=== PATIENT | male | born 1945 | race Caucasian/White ===

== ENCOUNTER 2016-10-09 14:12 | Emergency (ER) | payer MEDICARE ==
[~2016-10-09] VITALS: Ht 177.8 cm; Wt 94.0 kg
[~2016-10-09 14:12] MED LIST: ASPI81 PO; EZET10 PO; FLEX10TA PO; METO50CR PO; NEUR300C PO; OXYC-68 PO; SERT25TA83 PO; TERA10CA3 PO
[2016-10-09 14:19] VITALS: BP 170/89; PULSE 74; RESP 16; TEMP 98.2; O2SAT 93
[2016-10-09] MEDS ORDERED: ZETI10TA5 PO (14:50)
[2016-10-09] MEDS ORDERED: BUPR100T4 PO (14:50)
[2016-10-09] MEDS ORDERED: TRAZ50TA12 PO (14:50)
[2016-10-09] MEDS ORDERED: ASPI1TAB69 PO (14:50)
[2016-10-09] MEDS ORDERED: METO50TA PO (14:50)
[2016-10-09] MEDS ORDERED: PRAV10TA PO (14:50)
[2016-10-09] MEDS ORDERED: TEST-25 SQ (14:50)
[2016-10-09] MEDS ORDERED: [UNRECOGNIZED DRUG - CODE] SQ (14:50)
[2016-10-09] MEDS ORDERED: TERA5CAP3 PO (14:50)
--- NOTE | 2016-10-09 15:24 | RADHPO ---
EXAM DATE/TIME: 10/09/2016 15:08 [facility] COMPARISON: No previous studies available for comparison. INDICATIONS : Right shoulder pain from fall. MEDICAL HISTORY : None. SURGICAL HISTORY : None. ENCOUNTER: Initial ACUITY: 1 day PAIN SCORE: 6/10 LOCATION: superior side of right shoulder. FINDINGS: Multiple view examination of the right shoulder demonstrates no evidence of fracture or dislocation. The glenohumeral and acromioclavicular joints are maintained. There is normal range of motion betwe en internal and external rotation. Bony mineralization is normal. CONCLUSION: 1. No acute fracture. Pablo Aiken MD on October 09, 2016 at 15:23 Board Certified Radiologist. This report was verified electronically.
--- NOTE | 2016-10-09 15:38 | RADHPO ---
EXAM DATE/TIME: 10/09/2016 15:16 [facility] COMPARISON: No previous studies available for comparison. INDICATIONS : Fall, cephalgia and right supraorbital laceration. RADIATION DOSE: 60.93 CTDIvol (mGy) MEDICAL HISTORY : Hypertension. Chronic obstructive pulmonary disease. SURGICAL HISTORY : None. ENCOUNTER: Initial ACUITY: 1 day PAIN SCALE: 5/10 LOCATION: cranial TECHNIQUE: Multiple contiguous axial images were obtained of the head. Using automated exposure control and adj ustment of the mA and/or kV according to patient size, radiation dose was kept as low as reasonably a chievable to obtain optimal diagnostic quality images. FINDINGS: CEREBRUM: The ventricles are normal for age. No evidence of midline shift, mass lesion, hemorrhage or acute in farction. No extra-axial fluid collections are seen. POSTERIOR FOSSA: The cerebellum and brainstem are intact. The 4th ventricle is midline. The cerebellopontine angle i s unremarkable. EXTRACRANIAL: The visualized portion of the orbits is intact. SKULL: The calvaria is intact. No evidence of skull fracture. CONCLUSION: No acute intracranial disease. Pablo Aiken MD on October 09, 2016 at 15:36 Board Certified Radiologist. This report was verified electronically.
--- NOTE | 2016-10-09 15:42 | RADHPO ---
EXAM DATE/TIME: 10/09/2016 15:16 [facility] COMPARISON: No previous studies available for comparison. INDICATIONS : Fall, right neck and shoulder pain. RADIATION DOSE: 26.54 CTDIvol (mGy) MEDICAL HISTORY : Hypertension. Chronic obstructive pulmonary disease. SURGICAL HISTORY : None. ENCOUNTER: Initial ACUITY: 1 day PAIN SCALE: 5/10 LOCATION: Right neck TECHNIQUE: Volumetric scanning of the cervical spine was performed. Multiplanar reconstructions in the sagittal, coronal and oblique axial planes were performed. Using automated exposure control and adjustment o f the mA and/or kV according to patient size, radiation dose was kept as low as reasonably achievable to obtain optimal diagnostic quality images. FINDINGS: VERTEBRAE: Normal vertebral body height. Multilevel degenerative changes greatest at C5-6 and C6-7 levels. Multi level degenerative changes of the facets. No canal stenosis. Small central protrusion at C3-4, C4-5 l evels. ALIGNMENT: No evidence of subluxation. Degenerative retrolisthesis C5 on C6. CONCLUSION: 1. Degenerative retrolisthesis C5 on C6. 2. No fracture. Pablo Aiken MD on October 09, 2016 at 15:38 Board Certified Radiologist. This report was verified electronically.
[2016-10-09] MEDS ORDERED: TRAM50TA PO ×2 (16:10→16:11)
--- NOTE | 2016-10-09 16:10 | PD ---
HPI Chief Complaint: Laceration/Skin Injury Time Seen by Provider: 14:50 Travel History International Travel<30 days: No Contact w/Intl Traveler<30days: No Traveled to known affect area: No History of Present Illness HPI 71-year-old male persist emergency department status post fall. Patient slipped and local establishment falling backwards hitting his anterior forehead on a door jam. Patient is unsure of loss of consciousness. He felt dazed and somewhat confused for about a minute afterwards. Patient also is complaining of right shoulder pain and some hip discomfort from the fall. Patient has some neck discomfort as well but is ambulatory. Patient denies dental injury or other complaints of shortness of breath, chest pain, abdominal pain, or other symptoms. Patient is unsure of his last tetanus shot. Patient has no known drug allergies. PFSH Past Medical History Hx Anticoagulant Therapy: Yes (ASPIRIN) Arthritis: Yes Heart Rhythm Problems: No Cancer: Yes (SKIN CANCER BACK OF NECK) Cardiovascular Problems: Yes High Cholesterol: Yes Chemotherapy: No Chest Pain: No Congestive Heart Failure: No COPD: Yes Diabetes: No Diminished Hearing: No Endocrine: No Gastrointestinal Disorders: No Genitourinary: No Hypertension: Yes Immune Disorder: No Implanted Vascular Access Dvce: Yes Musculoskeletal: Yes (hx of staph infection in L5) Neurologic: No Psychiatric: No Reproductive: No Respiratory: Yes Radiation Therapy: No Influenza Vaccination: Yes Past Surgical History Abdominal Surgery: No Cardiac Surgery: No Ear Surgery: No Endocrine Surgery: No Eye Surgery: No Genitourinary Surgery: No Gynecologic Surgery: No Neurologic Surgery: No Oral Surgery: No Thoracic Surgery: No Other Surgery: Yes (IMPLANTED PORT) Social History Alcohol Use: Yes (RARE) Tobacco Use: No Substance Use: No Allergies-Medications (Allergen,Severity, Reaction): Coded Allergies: No Known Allergies (Verified , 10/09/16) Reported Meds & Prescriptions Reported Meds & Active Scripts Active Tramadol (Tramadol HCl) 50 Mg Tab 50 Mg PO Q6H PRN Tramadol (Tramadol HCl) 50 Mg Tab 50 Mg PO Q6H PRN Reported [Testosterone] 2 SQ MONTHLY Zemaira Inj (Alpha1-Proteinase Inhibitor (Human) Inj) 1,000 Mg/20 Ml Kit 200 Mg SQ WEEKLY Aspirin 81 Mg Tabdr 81 Mg PO DAILY Bupropion HCl 100 Mg Tab 150 Mg PO HS Pravastatin 10 Mg Tab 10 Mg PO DAILY Trazodone (Trazodone HCl) 50 Mg Tab 75 Mg PO HS Zetia (Ezetimibe) 10 Mg Tab 10 Mg PO DAILY Metoprolol Tartrate 50 Mg Tab 50 Mg PO DAILY Terazosin (Terazosin HCl) 5 Mg Cap 5 Mg PO HS Review of Systems Except as stated in HPI: all other systems reviewed are Neg General / Constitutional: No: Fever Eyes: No: Visual changes HENT: No: Headaches Cardiovascular: No: Chest Pain or Discomfort Respiratory: No: Shortness of Breath Gastrointestinal: No: Abdominal Pain Genitourinary: No: Dysuria Musculoskeletal: No: Pain Skin: No Rash Neurologic: No: Weakness Psychiatric: No: Depression Endocrine: No: Polydipsia Hematologic/Lymphatic: No: Easy Bruising Physical Exam Narrative GENERAL: Patient appears in mild distress. SKIN: Warm and dry. Patient has 2 superficial lacerations to the right medial brow which is already stopped bleeding. HEAD: Atraumatic. Normocephalic. Mild tenderness over this anterior forehead area. EYES: Pupils equal and round. No scleral icterus. No injection or drainage. ENT: No nasal bleeding or discharge. Mucous membranes pink and moist. No dental injury. Airway is patent. NECK: Trachea midline. No JVD. Mild tenderness, seemingly soft tissue without bony tenderness or step-off. Range of motion is full. CARDIOVASCULAR: Regular rate and rhythm. No murmurs gallops or rubs. RESPIRATORY: No accessory muscle use. Clear to auscultation. Breath sounds equal bilaterally. No thoracic tenderness with palpation. GASTROINTESTINAL: Abdomen soft, non-tender, nondistended. Hepatic and splenic margins not palpable. MUSCULOSKELETAL: Extremities without clubbing, cyanosis, or edema. No obvious deformities. Patient has some mild discomfort in the anterior lateral shoulder palpation without obvious deformity or limited range of motion. Patient has mild tenderness over the right lateral hip with superficial bruising noted. Patient is ambulatory without difficulty. NEUROLOGICAL: Awake and alert. No obvious cranial nerve deficits. Motor grossly within normal limits. Five out of 5 muscle strength in the arms and legs. Normal speech. PSYCHIATRIC: Appropriate mood and affect; insight and judgment normal. Data Data Last Documented VS Vital Signs Date Time Temp Pulse Resp B/P Pulse Ox O2 Delivery O2 Flow Rate FiO2 10/09/16 14:19 98.2 74 16 170/[address] Brain W/O Iv Contrast(Rout) (10/09/16 15:02) Ct Cerv Spine W/O Contrast (10/09/16 15:02) Shoulder, Complete (>2vws) (10/09/16 15:02) Tetanus/Diphtheria Tox Adult (Tetanus/Di (10/09/16 16:15) MDM Medical Decision Making Medical Screen Exam Complete: Yes Emergency Medical Condition: Yes Differential Diagnosis Fall. Head contusion. Superficial laceration. Neck pain. Right shoulder pain. Fracture. Hip contusion. Narrative Course Patient is medically stable at time of exam. CT of the head and neck is ordered. X-rays of the right shoulder ordered. CT the head and neck are negative per radiologist for acute findings. X-rays of the right shoulder negative per radiologist. Patient is given a tetanus booster IM. Dermabond was placed over the facial abrasions/lacerations. Patient is given tramadol 50 mg one every 6 hours when necessary pain #20. Patient can take Tylenol as well as needed. Recommend ice to the contused areas and follow with his primary care physician as needed. Patient should return the emergency Department with worsening symptoms as needed. Procedures Procedure Narrative LACERATION LOCATION: Right medial brow LENGTH: 1 cm NUMBER OF STITCHES/SHARON: Dermabond REPAIR: The area of the laceration was prepped with Betadine and sterilely draped. The wound was copiously irrigated and explored without evidence of foreign body, tendon injury or neurovascular injury. The wound was closed using Dermabond. This was a single layer repair. The patient was advised to keep the area clean and dry. Patient tolerated the procedure well. Diagnosis Primary Impression: Fall Qualified Code: W19.XXXA - Fall, initial encounter Additional Impressions: Contusion of face Qualified Code: S00.83XA - Contusion of face, initial encounter Laceration of face without complication Qualified Code: S01.81XA - Laceration of face without complication, initial encounter Contusion of right shoulder Qualified Code: S40.011A - Contusion of right shoulder, initial encounter Contusion of right hip Qualified Code: S70.01XA - Contusion of right hip, initial encounter Referrals: Primary Care Physician Patient Instructions: Facial Contusion (ED), Facial Laceration (ED), General Instructions, Tetanus (DC) Additional Instructions: CT the head and neck are negative per radiologist for acute findings. X-rays of the right shoulder negative per radiologist. Patient is given a tetanus booster IM. Dermabond was placed over the facial abrasions/lacerations. Patient is given tramadol 50 mg one every 6 hours when necessary pain #20. Patient can take Tylenol as well as needed. Recommend ice to the contused areas and follow with his primary care physician as needed. Patient should return the emergency Department with worsening symptoms as needed. Med/Other Pt SpecificInfo: Prescription(s) given Scripts Tramadol 50 Mg Tab50 Mg PO Q6H PRN (PAIN) #20 TAB Prov:Chavez Richardson MD 10/09/16 Tramadol 50 Mg Tab50 Mg PO Q6H PRN (PAIN) #20 TAB Prov:Kelsy Holder MD 10/09/16 Disposition: 01 DISCHARGE HOME Condition: Stable Matthew Guevara Oct 09, 2016 16:10
[2016-10-09] MEDS ORDERED: TETANUS/DIPHTHERIA TOXOID ADULT 0.5 ML VIAL IM ONE (16:15)
== END 2016-10-09 16:30 | disposition home or self-care (01) ==
LOC: PHED 14:12 → PHEFT 16:30
DX: S01.81XA Laceration without foreign body of other part of head, initial encounter (principal); S70.01XA Contusion of right hip, initial encounter; S40.011A Contusion of right shoulder, initial encounter; W01.0XXA Fall on same level from slipping, tripping and stumbling without subsequent striking against object, initial encounter; Z23 Encounter for immunization
CPT/HCPCS: 12011; 70450; 72125; 73030; 90471; 90714

== ENCOUNTER → 2016-12-17 | Outpatient (CLI) | payer MEDICARE ==
[~2016-12-17] MED LIST changes: +ASPI1TAB69 PO; -ASPI81 PO; +BUPR100T4 PO; -EZET10 PO; -FLEX10TA PO; -METO50CR PO; +METO50TA PO; -NEUR300C PO; -OXYC-68 PO; +PRAV10TA PO; -SERT25TA83 PO; -TERA10CA3 PO; +TERA5CAP3 PO; +TEST-25 SQ; +TRAM50TA PO; +TRAZ50TA12 PO; +ZETI10TA5 PO; +[UNRECOGNIZED DRUG - CODE] SQ
[2016-12-17 08:47] LABS: ALKALINE PHOSPHATASE 67 U/L (45-117); TOTAL BILIRUBIN ADULT 0.5 MG/DL (0.2-1.0)
[2016-12-17 09:15] LABS: ALT (GPT) 30 U/L (12-78); ANION GAP 5 MEQ/L (5-15); AST (GOT) 32 U/L (15-37); BICARBONATE 29.2 MEQ/L (21.0-32.0); BLOOD UREA NITROGEN 27 MG/DL (7-18); CHLORIDE 105 MEQ/L (98-107); GLOMERULAR FILTRATION RATE 59 ML/MIN (>89); GLUCOSE,FASTING 103 MG/DL (74-99); SODIUM (NA) 139 MEQ/L (136-145)
[2016-12-17 09:16] LABS: POTASSIUM 4.6 MEQ/L (3.5-5.1)
== END ==
LOC: HRSP 07:29
DX: J44.9 Chronic obstructive pulmonary disease, unspecified (principal); R05 Cough; R06.00 Dyspnea, unspecified
CPT/HCPCS: 36415; 80053

== ENCOUNTER 2017-03-28 13:46 | Day surgery (SDC) | payer MEDICARE ==
[2017-03-28 14:07] VITALS: BP 158/82; PULSE 82; RESP 18; TEMP 98.2; O2SAT 98
[2017-03-28] MEDS ORDERED: ASPI81CH37 CHEW (14:10)
[2017-03-28] MEDS ORDERED: TEST1KIT IM (14:11)
[2017-03-28 15:21] VITALS: BP 132/74; PULSE 64; RESP 17; TEMP 98.3; O2SAT 97
--- NOTE | 2017-03-28 15:55 | PD.RAD ---
Post Procedure Progress Note Pre Procedure Diagnosis: (1) Problem with vascular access Post Procedure Diagnosis: (1) Problem with vascular access Procedure Date: Mar 28, 2017 Supervising Radiologist: Mode Nova JR Proceduralist/Assist: RT Mckenzie(R)(CV) Anesthesia: Other Plan of Activity Patient to Unit: ROPU Patient Condition: Good Additional Comments: Left port accessed without difficulty. Good blood return obtained. Injection shows patent port. No fibrin sheath. Tip in good position. Flushed with heparin. See PACS Report for procedural detail/treatment Jr. Avtar,Mode Prince MD Mar 28, 2017 15:55
--- NOTE | 2017-03-28 16:19 | RADRPT ---
EXAM DATE/TIME: 03/28/2017 14:56 COMPARISON: No previous studies available for comparison. INDICATIONS : Patient has port for Alpha 1. receives infusions. No blood draw MEDICAL HISTORY : 1. HTN 2. COPD 3. Staph infection L5 4. skin ca SURGICAL HISTORY : 1. Lt port ENCOUNTER: Initial ACUITY: 1 week PAIN SCORE: 0/10 FLUORO TIME: 0.3 minutes IMAGE SERIES: 2 ACCESS SITE: Left port CONTRAST: 1.) 10 cc Omnipaque (iohexol) 350 FINDINGS: The patient's left-sided Port-A-Cath was accessed. A good brisk blood return noted. Injection of cont rast was performed under fluoroscopic control. No fibrin sheath. No extravasation of contrast to sugg est a fracture in the catheter. The tip of the catheter is appropriate lead positioned at the cavoatr ial junction. CONCLUSION: Port-A-Cath in good position and functioning well. Mode Nova Jr., MD on March 28, 2017 at 16:16 Board Certified Radiologist. This report was verified electronically.
== END 2017-03-28 15:20 | disposition home or self-care (01) ==
LOC: HROP 13:46 → HRIP 13:47 → HROP 15:20
PROVIDERS: ATTEND Surgery
DX: T82.898A Other specified complication of vascular prosthetic devices, implants and grafts, initial encounter (principal)
CPT/HCPCS: 36598; J1642

== ENCOUNTER → 2017-04-19 | Outpatient (CLI) | payer MEDICARE ==
[~2017-04-19] MED LIST changes: -ASPI1TAB69 PO; +ASPI81CH37 CHEW; -TEST-25 SQ; +TEST1KIT IM
--- NOTE | 2017-04-26 11:55 | RSPPFT ---
DATE OF PROCEDURE: 04/19/17 COMMENTS: Spirometry demonstrates an FEV1 of 2.5 at 79% of predicted, FVC of 3.9 at 96%, FEV1/FVC ratio is 65%. The FEF 25-75 is 44% of predicted. Post-bronchodilator study demonstrated no significant change. Lung volumes demonstrated a raised RV/TLC ratio indicating hyperinflation with air trapping. Diffusion capacity is mildly reduced. Flow volume loops are suggestive of an obstructive pattern. IMPRESSION: 1. Mild obstructive disease. 2. No significant change following use of bronchodilator. 3. Mild reduction in diffusion capacity.
== END ==
LOC: PHRSP 07:27
DX: J44.9 Chronic obstructive pulmonary disease, unspecified (principal); R06.00 Dyspnea, unspecified; R05 Cough
CPT/HCPCS: 94060; 94726; 94729

== ENCOUNTER 2017-11-20 15:42 | Emergency (ER) | payer MEDICARE ==
[~2017-11-20] VITALS: Ht 177.8 cm; Wt 91.0 kg
[~2017-11-20 15:42] MED LIST changes: -ASPI81CH37 CHEW; +ASPI81CH6 CHEW; +EZET10 PO; -ZETI10TA5 PO
[2017-11-20 15:46] VITALS: BP 172/89; PULSE 92; RESP 22; TEMP 97.4; O2SAT 99
--- NOTE | 2017-11-20 15:56 | PD ---
HPI Chief Complaint: Edema Time Seen by Provider: 15:55 Travel History International Travel<30 days: No Contact w/Intl Traveler<30days: No Traveled to known affect area: No History of Present Illness HPI 72-year-old male came to the emergency room with history of left arm swelling and left side of the neck swelling. Patient also pulled up his gown to showed me that he is anterior chest wall and anterior abdominal wall has a lot of dilated veins and the skin looked congested. Left side of his face has been swollen as well. Patient has had these symptoms for past 1 week or so. He had gone to see his primary care who had started him on Benadryl. But the swelling has persisted in spite of that. No history of shortness of breath or chest pain. Vital signs are otherwise stable. Patient has history of alpha-1 antitrypsin deficiency. He also has a port on the left side of his chest which as per the patient has been there for years. [facility] Past Medical History Narrative Medical List of his past medical, surgical, social and family history is reviewed from the nursing note. Hx Anticoagulant Therapy: Yes (ASPIRIN) Arthritis: Yes Heart Rhythm Problems: No Cancer: Yes (SKIN CANCER BACK OF NECK) Cardiovascular Problems: Yes High Cholesterol: Yes Chemotherapy: No Chest Pain: No Congestive Heart Failure: No COPD: Yes Diabetes: No Diminished Hearing: No Endocrine: No Gastrointestinal Disorders: No Genitourinary: No Hypertension: Yes Immune Disorder: No Implanted Vascular Access Dvce: Yes Musculoskeletal: Yes (hx of staph infection in L5) Neurologic: No Psychiatric: No Reproductive: No Respiratory: Yes Radiation Therapy: No Past Surgical History Abdominal Surgery: No Cardiac Surgery: No Ear Surgery: No Endocrine Surgery: No Eye Surgery: No Genitourinary Surgery: No Gynecologic Surgery: No Neurologic Surgery: No Oral Surgery: No Thoracic Surgery: No Other Surgery: Yes (IMPLANTED PORT) Social History Alcohol Use: Yes (RARE) Tobacco Use: No Substance Use: No Allergies-Medications (Allergen,Severity, Reaction): Coded Allergies: No Known Allergies (Verified Allergy, Unknown, 11/20/17) Comments No known drug allergies. Reported Meds & Prescriptions Reported Meds & Active Scripts Active Xarelto Starter Pack 15 & 20 mg (Rivaroxaban) 15 Mg (42)- 20 Mg (9) Tab 1 Tab PO DIRECTED 30 Days Reported Trileptal (Oxcarbazepine) 150 Mg Tab 150 Mg PO TID Amlodipine (Amlodipine Besylate) 2.5 Mg Tab 2.5 Mg PO DAILY Multi Vitamin Daily (Multiple Vitamin) 1 Tab Tab Fish Oil ([place]-3 Fatty Acids) 60 Mg-90 Mg-500 Mg Cap Melatonin 10 Mg-1 Mg Tab 10 Mg PO HS PRN Lisinopril 10 Mg Tab 10 Mg PO DAILY Anoro Ellipta Inh (Umeclidinium/Vilanterol) 62.5-25 Mcg/Act Aero 1 Puff INH DAILY Combivent Respimat Inh (Ipratropium-Albuterol Inh) 20-100 Nursing Home/Act Aero 1 Puff INH TID Lisinopril 10 Mg Tab 10 Mg PO DAILY Testone Cik Inj (Testosterone Cypionate) 200 Mg/Ml Kit 200 Mg IM Q30D Aspirin Low Dose (Aspirin) 81 Mg Chew 81 Mg CHEW DAILY Zemaira Inj (Alpha1-Proteinase Inhibitor (Human) Inj) 1,000 Mg/20 Ml Kit 200 Mg SQ WEEKLY Pravastatin 10 Mg Tab 10 Mg PO DAILY Trazodone (Trazodone HCl) 50 Mg Tab 75 Mg PO HS Zetia (Ezetimibe) 10 Mg Tab 10 Mg PO DAILY Metoprolol Tartrate 50 Mg Tab 75 Mg PO BID Terazosin (Terazosin HCl) 5 Mg Cap 5 Mg PO HS Narrative Medication List of his home medications reviewed from the nursing note. Review of Systems Except as stated in HPI: all other systems reviewed are Neg Musculoskeletal: Positive: Edema Physical Exam Narrative GENERAL: Awake, alert, anxious, no obvious distress SKIN: Focused skin assessment warm/dry. Congestion and dilated veins on the anterior chest wall and to some extent the upper anterior abdominal wall. Left upper extremity is swollen and nonpitting edema. Right upper extremity looks slightly swollen but not as bad as the left. HEAD: Atraumatic. Normocephalic. EYES: Pupils equal and round. No scleral icterus. No injection or drainage. ENT: No nasal bleeding or discharge. Mucous membranes pink and moist. Left- sided facial swelling. No stridor. No mucosal swelling NECK: Trachea midline. No JVD. CARDIOVASCULAR: Regular rate and rhythm. No murmur appreciated. RESPIRATORY: No accessory muscle use. Clear to auscultation. Breath sounds equal bilaterally. GASTROINTESTINAL: Abdomen soft, non-tender, nondistended. Hepatic and splenic margins not palpable. MUSCULOSKELETAL: No obvious deformities. No clubbing. No cyanosis. No edema. NEUROLOGICAL: Awake and alert. No obvious cranial nerve deficits. Motor grossly within normal limits. Normal speech. PSYCHIATRIC: Appropriate mood and affect; insight and judgment normal. Data Data Last Documented VS Vital Signs Date Time Temp Pulse Resp B/P (MAP) Pulse Ox O2 Delivery O2 Flow Rate FiO2 11/20/17 15:46 97.4 92 22 172/89 (116) 99 Orders Orders Complete Blood Count With Diff (11/20/17 16:41) Basic Metabolic Panel (Bmp) (11/20/17 16:41) Prothrombin Time / Inr (Pt) (11/20/17 16:41) Ct Thorax/ Chest W Iv Contrast (11/20/17 ) Ct Abd/Pel W Iv Contrast(Rout) (11/20/17 ) ^ Saline Lock (11/20/17 16:41) Sodium Chlorid 0.9% 500 Ml Inj (Ns 500 M (11/20/17 16:45) Iohexol 350 Inj (Omnipaque 350 Inj) (11/20/17 18:11) Rivaroxaban (Xarelto) (11/20/17 19:00) Ed Discharge Order (11/20/17 18:46) Labs Laboratory Tests Test 11/20/17 16:52 White Blood Count 11.0 TH/MM3 Red Blood Count 5.36 MIL/MM3 Hemoglobin 17.3 GM/DL Hematocrit 51.0 % Mean Corpuscular Volume 95.2 FL Mean Corpuscular Hemoglobin 32.2 PG Mean Corpuscular Hemoglobin Concent 33.9 % Red Cell Distribution Width 15.0 % Platelet Count 155 TH/MM3 Mean Platelet Volume 9.3 FL Neutrophils (%) (Auto) 80.4 % Lymphocytes (%) (Auto) 10.2 % Monocytes (%) (Auto) 8.4 % Eosinophils (%) (Auto) 0.6 % Basophils (%) (Auto) 0.4 % Neutrophils # (Auto) 8.8 TH/MM3 Lymphocytes # (Auto) 1.1 TH/MM3 Monocytes # (Auto) 0.9 TH/MM3 Eosinophils # (Auto) 0.1 TH/MM3 Basophils # (Auto) 0.0 TH/MM3 CBC Comment DIFF FINAL Differential Comment Prothrombin Time 10.6 SEC Prothromb Time International Ratio 1.0 RATIO Blood Urea Nitrogen 25 MG/DL Creatinine 1.16 MG/DL Random Glucose 85 MG/DL Calcium Level 8.6 MG/DL Sodium Level 138 MEQ/L Potassium Level 4.8 MEQ/L Chloride Level 106 MEQ/L Carbon Dioxide Level 26.1 MEQ/L Anion Gap 6 MEQ/L Estimat Glomerular Filtration Rate 62 ML/MIN MDM Medical Decision Making Medical Screen Exam Complete: Yes Emergency Medical Condition: Yes Medical Record Reviewed: Yes Differential Diagnosis Superior vena cava syndrome, subclavian vein thrombosis, intrathoracic tumor Narrative Course 5:50 PM blood test results are back and his BUN and creatinine are within normal limits. Awaiting for a CT scan of his chest, abdomen and pelvis with contrast to rule any of the differentials out. 6:[address] scan is suggestive of SVC occlusion. I discussed the case with the thoracic surgeon Dr. Honeycutt. Because of the collaterals and the chronicity to it as per him nothing needs to be done emergently except to put the patient on anticoagulant. Patient can be on an oral anticoagulant like Xarelto and can go home. If patient does not get recanalized then his primary care would need to refer him to a tertiary care center where they can do something about it since he does not do anything. However patient does not need to be transferred immediately. I will give him a dose of Xarelto here and a prescription to go home with. Procedures EKG Prior to Arrival: No Physician Communication Physician Communication Dr. Honeycutt Diagnosis Primary Impression: SVC (superior vena cava obstruction) Referrals: Primary Care Physician 2 days Additional Instructions: Please take the medication as per the prescription direction. Return to the ER if condition worsens or any other new concerns. Otherwise follow-up with your primary care. If your symptoms do not improve then your primary care will have to refer you to a tertiary care center to see a thoracic surgeon for a definitive care since our thoracic surgeon in this hospital do not take care of something like this as it is beyond the scope of their practice. Med/Other Pt SpecificInfo: Prescription(s) given Scripts Rivaroxaban Starter Pack 15 & 20 mg (Xarelto Starter Pack 15 & 20 mg) 15 Mg (42) - 20 Mg (9) Tab 1 TAB PO DIRECTED for Blood Clot Prevention for 30 Days, PACK 0 Refills Prov: Surendra Gonzales MD 11/20/17 Disposition: 01 DISCHARGE HOME Condition: Stable Surendra Gonzales MD Nov 20, 2017 15:56
[2017-11-20] MEDS ORDERED: LISI10TA3 PO (16:10)
[2017-11-20] MEDS ORDERED: AMLO2.5T PO (16:10)
[2017-11-20] MEDS ORDERED: MELA1TAB18 PO (16:10)
[2017-11-20] MEDS ORDERED: IPRAAER INH (16:10)
[2017-11-20] MEDS ORDERED: UMEC1AER INH (16:10)
[2017-11-20] MEDS ORDERED: MULT1TAB46 (16:10)
[2017-11-20] MEDS ORDERED: FISH500C (16:10)
[2017-11-20] MEDS ORDERED: TRIL150T PO (16:10)
[2017-11-20] MEDS ORDERED: SODIUM CHLORID 0.9% 500 ML INJ 500 ML IV ONE (16:45)
[2017-11-20 17:00] LABS: AUTOMATED NEUTROPHIL # 8.8 TH/MM3 (1.8-7.7); BASOPHIL % 0.4 % (0.0-2.0); EOSINOPHIL # 0.1 TH/MM3 (0-0.4); EOSINOPHIL % 0.6 % (0.0-4.0); HEMOGLOBIN 17.3 GM/DL (13.0-17.0); LYMPH % 10.2 % (9.0-44.0); LYMPHOCYTE # 1.1 TH/MM3 (1.0-4.8); MEAN CELL VOLUME 95.2 FL (80.0-100.0); MEAN CORPUSCULAR HEMOGLOBIN 32.2 PG (27.0-34.0); MEAN CORPUSCULAR HGB CONC 33.9 % (32.0-36.0); MEAN PLATELET VOLUME 9.3 FL (7.0-11.0); MONO % 8.4 % (0.0-8.0); MONOCYTE # 0.9 TH/MM3 (0-0.9); NEUT % 80.4 % (16.0-70.0); PLATELET COUNT 155 TH/MM3 (150-450); RED BLOOD COUNT 5.36 MIL/MM3 (4.50-5.90)
[2017-11-20 17:13] LABS: PROTHROMBIN TIME - PATIENT 10.6 SEC (9.8-11.6)
[2017-11-20 17:41] LABS: BICARBONATE 26.1 MEQ/L (21.0-32.0); CALCIUM 8.6 MG/DL (8.5-10.1); CREATININE 1.16 MG/DL (0.60-1.30)
[2017-11-20] MEDS ORDERED: IOHEXOL 350 MG/ML 10 ML VIAL (for RAD DIAG) IVCONTRAST ONE (18:11)
--- NOTE | 2017-11-20 18:23 | RADRPT ---
EXAM DATE/TIME: 11/20/2017 18:03 [facility] COMPARISON: No previous studies available for comparison. INDICATIONS : Diffuse abdomen pain. IV CONTRAST: 78 cc Omnipaque 350 (iohexol) IV ; Cumulative dose for multiple exams. ORAL CONTRAST: No oral contrast ingested. RADIATION DOSE: 16.49 CTDIvol (mGy) ; Combined studies MEDICAL HISTORY : Hypertension. Chronic obstructive pulmonary disease. skin cancer SURGICAL HISTORY : port placement ENCOUNTER: Initial ACUITY: 1 day PAIN SCALE: 3/10 LOCATION: Bilateral abdomen TECHNIQUE: Volumetric scanning of the abdomen and pelvis was performed. Using automated exposure control and ad justment of the mA and/or kV according to patient size, radiation dose was kept as low as reasonably achievable to obtain optimal diagnostic quality images. DICOM format image data is available electro nically for review and comparison. FINDINGS: There is peribronchial thickening and distal airway disease of both lung bases with mild consolidatio n as well. Differential diagnosis includes chronic aspiration and subacute or chronic infectious thomas ges. No acute findings in the liver, spleen, adrenals or pancreas. Tiny bilateral nonobstructing renal long culi. No free fluid. No bowel obstruction. No adenopathy. No pelvic masses. Colonic diverticula without evidence for diverticulitis. CONCLUSION: 1. No acute findings within the abdomen. Colonic diverticulosis without diverticulitis. Tiny nonobstr ucting renal calculi. Basilar lung disease as above. Moy Browne MD on November 20, 2017 at 18:13 Board Certified Radiologist. This report was verified electronically.
--- NOTE | 2017-11-20 18:25 | RADRPT ---
EXAM DATE/TIME: 11/20/2017 18:03 [facility] COMPARISON: No previous studies available for comparison. INDICATIONS : Shortness of breath and left arm swelling for one week. IV CONTRAST: 78 cc Omnipaque 350 (iohexol) IV ; Cumulative dose for multiple exams. RADIATION DOSE: 16.49 CTDIvol (mGy) ; Combined studies MEDICAL HISTORY : Hypertension. Chronic obstructive pulmonary disease. skin cancer SURGICAL HISTORY : port placement ENCOUNTER: Initial ACUITY: 1 week PAIN SCALE: 0/10 LOCATION: Bilateral chest TECHNIQUE: Volumetric scanning of the chest was performed. Using automated exposure control and adjustment of t he mA and/or kV according to patient size, radiation dose was kept as low as reasonably achievable to obtain optimal diagnostic quality images. DICOM format image data is available electronically for review and comparison. Follow-up recommendations for detected pulmonary nodules are based at a minimum on nodule size and pa tient risk factors according to Fleischner Society Guidelines. FINDINGS: Contrast injection is via the right upper extremity. The superior vena cava and probably at least colette e of the left brachiocephalic/subclavian vein are occluded. Contrast enters the right side of the hea rt via the azygos and mediastinal collaterals. There is an indwelling left subclavian Oejntu-l-Qrzq c atheter with tip at the atriocaval junction. There is emphysema in a lower lobe predominant distribution. Bibasilar bronchiectasis present and the re are coarse interstitial mixed with patchy parenchymal opacities of both bases. No pleural effusion . No pneumothorax. Heart size within normal limits. Right and left side coronary artery calcification noted. CONCLUSION: 1. Occluded SVC. There are collateral vessels consistent with chronicity. 2. Emphysema, bronchiectasis, chronic appearing interstitial disease and patchy parenchymal consolida tion/scarring of both bases. Kian Casey MD on November 20, 2017 at 18:16 Board Certified Radiologist. This report was verified electronically.
[2017-11-20] MEDS ORDERED: RIVA1TAB PO (18:46)
[2017-11-20] MEDS ORDERED: RIVAROXABAN 15 MG TAB PO ONE (19:00)
== END 2017-11-20 19:01 | disposition home or self-care (01) ==
LOC: NEPC 15:42
DX: I87.1 Compression of vein (principal); E78.00 Pure hypercholesterolemia, unspecified; I10 Essential (primary) hypertension; J44.9 Chronic obstructive pulmonary disease, unspecified; Z85.828 Personal history of other malignant neoplasm of skin
CPT/HCPCS: 71260; 74177; 80048; 85025; 85610; 96360; 99285; J7040; Q9967

== ENCOUNTER 2017-11-25 13:05 | Inpatient (IN) | payer MEDICARE ==
[~2017-11-25] VITALS: Ht 177.8 cm; Wt 88.6 kg
[~2017-11-25 13:05] MED LIST changes: +AMLO2.5T PO; -BUPR100T4 PO; +FISH500C; +IPRAAER INH; +LISI10TA3 PO; +MELA1TAB18 PO; +MULT1TAB46; +RIVA1TAB PO; -TRAM50TA PO; +TRIL150T PO; +UMEC1AER INH
[2017-11-25 13:09] VITALS: BP 195/79; PULSE 148; PULSE 86; RESP 22; TEMP 98; O2SAT 94
[2017-11-25] MEDS ORDERED: SODIUM CHLORIDE 0.9% FLUSH 10 ML FLUSH IVF PRN (14:00)
[2017-11-25 14:06] VITALS: O2SAT 96
--- NOTE | 2017-11-25 14:15 | PD ---
HPI Chief Complaint: Edema Time Seen by Provider: 13:47 Travel History International Travel<30 days: No Contact w/Intl Traveler<30days: No Traveled to known affect area: No History of Present Illness HPI Patient is a 72-year-old male presenting to the emergency department for evaluation of increasing edema to his left arm and face. Patient reports a history of an occluded SVC. He states for the last several days his left arm has been seeping. Patient reports occasional shortness of breath. He denies any chest pain, abdominal pain, fever, chills, headache. Patient went to his primary doctor today and due to symptomology was sent to the emergency department today. Symptom onset was gradual and appears chronic. Symptoms are worsening and moderate to severe in nature. Patient denies any pain at this time. There are no alleviating factors. Patient reports compliance with previously prescribed Xarelto. Patient's past medical history is significant for alpha-1 antitrypsin deficiency, hyperlipidemia, GERD, mitral valve insufficiency, hypertension, type 2 diabetes and COPD. PFSH Past Medical History Hx Anticoagulant Therapy: Yes (Xarelto) Arthritis: Yes Cancer: Yes (SKIN CANCER BACK OF NECK) High Cholesterol: Yes COPD: Yes Diabetes: Yes GERD: Yes Hypertension: Yes Implanted Vascular Access Dvce: Yes (Left chest wall) Respiratory: Yes Social History Alcohol Use: Yes (RARE) Tobacco Use: No Substance Use: No Allergies-Medications (Allergen,Severity, Reaction): Coded Allergies: No Known Allergies (Verified Allergy, Unknown, 11/20/17) Reported Meds & Prescriptions Reported Meds & Active Scripts Active Reported Melatonin 10 Mg-1 Mg Tab 10 Mg PO HS PRN Proair Hfa 8.5 GM Inh (Albuterol Sulfate) 90 Mcg/Act Aer 1 Puff INH Q4H PRN 108 mcg/actuation Trazodone (Trazodone HCl) 150 Mg Tablet 150 Mg PO HS Multi Vitamin Daily (Multiple Vitamin) 1 Tab Tab Fish Oil ([place]-3 Fatty Acids) 60 Mg-90 Mg-500 Mg Cap Anoro Ellipta Inh (Umeclidinium/Vilanterol) 62.5-25 Mcg/Act Aero 1 Puff INH DAILY Lisinopril 10 Mg Tab 10 Mg PO DAILY Testone Cik Inj (Testosterone Cypionate) 200 Mg/Ml Kit 200 Mg IM Q30D Pravastatin 10 Mg Tab 10 Mg PO DAILY Zetia (Ezetimibe) 10 Mg Tab 10 Mg PO DAILY Metoprolol Tartrate 50 Mg Tab 75 Mg PO BID Terazosin (Terazosin HCl) 5 Mg Cap 5 Mg PO HS Review of Systems Except as stated in HPI: all other systems reviewed are Neg Cardiovascular: Positive: Edema Respiratory: Positive: Shortness of Breath Physical Exam Narrative GENERAL: Overweight, well-developed, alert elderly gentleman. Presenting in no acute distress. SKIN: Warm and dry. Distended veins to anterior chest wall. HEAD: Atraumatic. Normocephalic. EYES: Pupils equal and round. No scleral icterus. No injection or drainage. ENT: No nasal bleeding or discharge. Mucous membranes pink and moist. NECK: Trachea midline. No JVD. CARDIOVASCULAR: Regular rate and rhythm. JVD RESPIRATORY: No accessory muscle use. Clear to auscultation. Breath sounds equal bilaterally. GASTROINTESTINAL: Abdomen soft, non-tender, nondistended. Hepatic and splenic margins not palpable. MUSCULOSKELETAL: Extremities without clubbing, cyanosis. No obvious deformities. Edema to left upper extremity, 2+ pitting. 2+ radial pulse. NEUROLOGICAL: Awake and alert. No obvious cranial nerve deficits. Motor grossly within normal limits. Five out of 5 muscle strength in the arms and legs. Normal speech. PSYCHIATRIC: Appropriate mood and affect; insight and judgment normal. Data Data Last Documented VS Vital Signs Date Time Temp Pulse Resp B/P (MAP) Pulse Ox O2 Delivery O2 Flow Rate FiO2 11/25/17 14:06 96 Room Air 11/25/17 13:09 98.0 86 22 195/79 (117) Orders Orders Complete Blood Count With Diff (11/25/17 13:55) Comprehensive Metabolic Panel (11/25/17 13:55) Act Partial Throm Time (Ptt) (11/25/17 13:55) Prothrombin Time / Inr (Pt) (11/25/17 13:55) Iv Access Insert/Monitor (11/25/17 13:55) Ecg Monitoring (11/25/17 13:55) Oximetry (11/25/17 13:55) Oxygen Administration (11/25/17 13:55) Chest, Single Ap (11/25/17 13:55) Sodium Chloride 0.9% Flush (Ns Flush) (11/25/17 14:00) Admit Order (Ed Use Only) (11/25/17 15:19) Labs Laboratory Tests Test 11/25/17 14:05 White Blood Count 6.6 TH/MM3 Red Blood Count 5.04 MIL/MM3 Hemoglobin 16.1 GM/DL Hematocrit 48.5 % Mean Corpuscular Volume 96.2 FL Mean Corpuscular Hemoglobin 32.0 PG Mean Corpuscular Hemoglobin Concent 33.2 % Red Cell Distribution Width 15.4 % Platelet Count 184 TH/MM3 Mean Platelet Volume 9.4 FL Neutrophils (%) (Auto) 75.3 % Lymphocytes (%) (Auto) 14.5 % Monocytes (%) (Auto) 8.0 % Eosinophils (%) (Auto) 1.6 % Basophils (%) (Auto) 0.6 % Neutrophils # (Auto) 5.0 TH/MM3 Lymphocytes # (Auto) 1.0 TH/MM3 Monocytes # (Auto) 0.5 TH/MM3 Eosinophils # (Auto) 0.1 TH/MM3 Basophils # (Auto) 0.0 TH/MM3 CBC Comment DIFF FINAL Differential Comment Prothrombin Time 11.7 SEC Prothromb Time International Ratio 1.2 RATIO Activated Partial Thromboplast Time 27.3 SEC Blood Urea Nitrogen 23 MG/DL Creatinine 1.13 MG/DL Random Glucose 104 MG/DL Total Protein 6.7 GM/DL Albumin 3.2 GM/DL Calcium Level 8.7 MG/DL Alkaline Phosphatase 61 U/L Aspartate Amino Transf (AST/SGOT) 33 U/L Alanine Aminotransferase (ALT/SGPT) 41 U/L Total Bilirubin 0.4 MG/DL Sodium Level 142 MEQ/L Potassium Level 3.9 MEQ/L Chloride Level 107 MEQ/L Carbon Dioxide Level 28.9 MEQ/L Anion Gap 6 MEQ/L Estimat Glomerular Filtration Rate 64 ML/MIN [facility] Medical Decision Making Medical Screen Exam Complete: Yes Emergency Medical Condition: Yes Medical Record Reviewed: Yes Interpretation(s) Last Impressions Chest X-Ray 11/25/17 9215 Signed Impressions: Service Date/Time: Saturday, November 25, 2017 14:03 - CONCLUSION: 1. Platelike opacities in the left mid to lower lung zones likely reflecting atelectasis/scarring. Dillon Trimble MD Laboratory Tests Test 11/25/17 14:05 White Blood Count 6.6 TH/MM3 Red Blood Count 5.04 MIL/MM3 Hemoglobin 16.1 GM/DL Hematocrit 48.5 % Mean Corpuscular Volume 96.2 FL Mean Corpuscular Hemoglobin 32.0 PG Mean Corpuscular Hemoglobin Concent 33.2 % Red Cell Distribution Width 15.4 % Platelet Count 184 TH/MM3 Mean Platelet Volume 9.4 FL Neutrophils (%) (Auto) 75.3 % Lymphocytes (%) (Auto) 14.5 % Monocytes (%) (Auto) 8.0 % Eosinophils (%) (Auto) 1.6 % Basophils (%) (Auto) 0.6 % Neutrophils # (Auto) 5.0 TH/MM3 Lymphocytes # (Auto) 1.0 TH/MM3 Monocytes # (Auto) 0.5 TH/MM3 Eosinophils # (Auto) 0.1 TH/MM3 Basophils # (Auto) 0.0 TH/MM3 CBC Comment DIFF FINAL Differential Comment Prothrombin Time 11.7 SEC Prothromb Time International Ratio 1.2 RATIO Activated Partial Thromboplast Time 27.3 SEC Blood Urea Nitrogen 23 MG/DL Creatinine 1.13 MG/DL Random Glucose 104 MG/DL Total Protein 6.7 GM/DL Albumin 3.2 GM/DL Calcium Level 8.7 MG/DL Alkaline Phosphatase 61 U/L Aspartate Amino Transf (AST/SGOT) 33 U/L Alanine Aminotransferase (ALT/SGPT) 41 U/L Total Bilirubin 0.4 MG/DL Sodium Level 142 MEQ/L Potassium Level 3.9 MEQ/L Chloride Level 107 MEQ/L Carbon Dioxide Level 28.9 MEQ/L Anion Gap 6 MEQ/L Estimat Glomerular Filtration Rate 64 ML/MIN Vital Signs Date Time Temp Pulse Resp B/P (MAP) Pulse Ox O2 Delivery O2 Flow Rate FiO2 11/25/17 14:06 96 Room Air 11/25/17 14:06 96 Room Air 11/25/17 13:57 94 Room Air 11/25/17 13:09 98.0 86 22 195/79 (484) 01 Differential Diagnosis Occluded SVC versus respiratory compromise versus metabolic abnormality versus other Narrative Course Patient is a 72-year-old male presenting to the emergency department for increasing edema to his left upper extremity. Patient was diagnosed with an occluded SVC on 11/20/17. At that time it was felt to be nonemergent patient was discharged home on Xarelto. Patient returns with increasing edema and now his skin is weeping. His vital signs are stable, he is well oxygenated on room air. Labs ordered and pending. Occluded SVC is likely directly related to implanted port. Upon review of medical records, CT of the chest on 11/20/17 that shows the occluded SVC, there are collateral vessels consistent with chronicity. It also showed emphysema, bronchiectasis, chronic appearing interstitial disease and patchy parenchymal consolidation. A CT the abdomen and pelvis was performed on that same day shows no acute findings within the abdomen. Colonic diverticulosis without diverticulitis. Tiny nonobstructing renal calculi. CBC with no acute findings, chemistry with no acute findings. Chest x-ray with platelike opacities in left mid to lower lung zones likely reflecting atelectasis. Due to patient being increasingly more symptomatic, he will be admitted at this time. Discussed with residents who accepted admit on behalf of Dr. Orourke, admit orders placed. Patient is agreeable to stay. Apparently cardiothoracic surgery cannot perform procedure here, discussed with Dr. Paulson who states patient could try to go to [facility] or have it addressed through interventional radiology. Dr. Jay discussed patient with Dr. Villavicencio who stated he would prefer to do procedure on Tuesday, until the time patient will be kept and diuresis. Dr. Granados, resident who accepted admission for Dr. Barrow was advised on findings. She was also advised to consult interventional radiology. Diagnosis Primary Impression: Superior vena cava occlusion with collaterals Admitting Information Admitting Physician Requests: Admit Condition: Stable iMranda Paulson Nov 25, 2017 14:15
[2017-11-25] MEDS ORDERED: ALBUAER3 INH (14:17)
[2017-11-25] MEDS ORDERED: MELA1TAB18 PO (14:17)
[2017-11-25] MEDS ORDERED: XARE15TA PO (14:17)
[2017-11-25] MEDS ORDERED: TRAZ1TAB14 PO (14:17)
--- NOTE | 2017-11-25 14:33 | RADRPT ---
EXAM DATE/TIME: 11/25/2017 14:03 [facility] COMPARISON: No previous studies available for comparison. INDICATIONS : Chest pain and swelling of left arm. MEDICAL HISTORY : Chronic obstructive pulmonary disease. Alpha 1 SURGICAL HISTORY : [place] ENCOUNTER: Initial ACUITY: 2 days PAIN SCORE: 0/10 LOCATION: Bilateral chest FINDINGS: Left subclavian [id number]-Geqr with tubing projecting over the SVC. Platelike opacities in the left mi d to lower lung zones. Cardiomediastinal contours are within normal limits given portable technique. Bony thorax is intact. CONCLUSION: 1. Platelike opacities in the left mid to lower lung zones likely reflecting atelectasis/scarring. Dillon Trimble MD on November 25, 2017 at 14:30 Board Certified Radiologist. This report was verified electronically.
[2017-11-25 14:41] LABS: BASOPHIL % 0.6 % (0.0-2.0); EOSINOPHIL # 0.1 TH/MM3 (0-0.4); EOSINOPHIL % 1.6 % (0.0-4.0); HEMATOCRIT 48.5 % (39.0-51.0); HEMOGLOBIN 16.1 GM/DL (13.0-17.0); LYMPH % 14.5 % (9.0-44.0); MEAN CELL VOLUME 96.2 FL (80.0-100.0); MEAN CORPUSCULAR HGB CONC 33.2 % (32.0-36.0); MEAN PLATELET VOLUME 9.4 FL (7.0-11.0); MONOCYTE # 0.5 TH/MM3 (0-0.9); NEUT % 75.3 % (16.0-70.0); PLATELET COUNT 184 TH/MM3 (150-450); RED BLOOD COUNT 5.04 MIL/MM3 (4.50-5.90); RED CELL DISTRIBUTION WIDTH 15.4 % (11.6-17.2); WHITE BLOOD COUNT 6.6 TH/MM3 (4.0-11.0)
[2017-11-25 14:52] LABS: INTERNATIONAL NORMALIZED RATIO 1.2 RATIO; PROTHROMBIN TIME - PATIENT 11.7 SEC (9.8-11.6)
[2017-11-25 14:53] LABS: ALBUMIN 3.2 GM/DL (3.4-5.0); ALT (GPT) 41 U/L (12-78); AST (GOT) 33 U/L (15-37); BICARBONATE 28.9 MEQ/L (21.0-32.0); BLOOD UREA NITROGEN 23 MG/DL (7-18); CALCIUM 8.7 MG/DL (8.5-10.1); CHLORIDE 107 MEQ/L (98-107); CREATININE 1.13 MG/DL (0.60-1.30); GLOMERULAR FILTRATION RATE 64 ML/MIN (>89); GLUCOSE,RANDOM 104 MG/DL (74-106); SODIUM (NA) 142 MEQ/L (136-145)
[2017-11-25 14:56] LABS: ALKALINE PHOSPHATASE 61 U/L (45-117); TOTAL BILIRUBIN ADULT 0.4 MG/DL (0.2-1.0); TOTAL PROTEIN 6.7 GM/DL (6.4-8.2)
[2017-11-25] MEDS ORDERED: FUROSEMIDE 40 MG/4 ML VIAL IV PUSH ONE ×2 (17:15→19:15)
[2017-11-25 18:00] VITALS: BP 179/79; PULSE 74; RESP 18; TEMP 98.2; O2SAT 93
--- NOTE | 2017-11-25 18:07 | HHI.HP ---
HPI Service Family Medicine Primary Care Physician Julian Jett MD Admission Diagnosis OCCLUDED SVC Diagnoses: International Travel<30 Days: No Contact w/Intl Traveler<30days: No Known Affected Area: No History of Present Illness 72 y/o M, comes in complaining of swelling x 3 weeks progressively getting worse since last weekend. He also started to feel water leaking out of his hand and wrist starting yesterday. He denies any pain in the left arm. He denies any CP/SOB/dizzyness. He has noticed "black coloring" on his chest (showed up 3 months ago, and PCP did not do any workup). Denies N/V. Patient came in on Tuesday to the ED with swelling of the left upper extremity and CT scan showed SVC occlusion. ED physician called Dr. Honeycutt who stated that he was not able to perform the necessary recannulization procedure. The patient was then discharged on Xarelto anticoagulation with recommendation to follow-up as an outpatient. When patient returned today the ED contacted IR physician whose stated that he would be willing to do the procedure on Tuesday. Review of Systems Constitutional: DENIES: Fatigue, Fever Endocrine: DENIES: Polyuria Eyes: DENIES: Diplopia, Eye inflammation Ears, nose, mouth, throat: DENIES: Nasal discharge, Oral lesions Respiratory: DENIES: Sputum production, Shortness of breath Cardiovascular: DENIES: Palpitations, Syncope Gastrointestinal: DENIES: Constipation, Diarrhea Genitourinary: DENIES: Hematuria Musculoskeletal: DENIES: Back pain Integumentary: DENIES: Rash Hematologic/lymphatic: DENIES: Lymphadenopathy Neurologic: DENIES: Headache, Localized weakness Psychiatric: DENIES: Depression Past Family Social History Past Medical History [id number] deficiency with port placement - hasn't used it in 2 months, but usually does infusions - seasoner COPD Past Surgical History knee replacement trigger thumb surgery port placements Allergies: Coded Allergies: No Known Allergies (Verified Allergy, Unknown, 11/20/17) Family History family history - none of alpha-1 Social History smoked cigarettes x 15 years, 1ppd drinks on rare occasions denies any drug use Live with , retired Physical Exam Vital Signs Vital Signs Date Time Temp Pulse Resp B/P (MAP) Pulse Ox O2 Delivery O2 Flow Rate FiO2 11/25/17 18:00 98.2 74 18 179/79 (112) 93 Room Air 11/25/17 14:06 96 Room Air 11/25/17 14:06 96 Room Air 11/25/17 13:57 94 Room Air 11/25/17 13:09 98.0 86 22 195/79 (117) 94 Physical Exam GENERAL: This is a well-nourished, well-developed patient, in no apparent distress. SKIN: No rashes, ecchymoses or lesions. Cool and dry. 3+ swelling from hand to the left shoulder. Mild erythema from forearm to left shoulder. Dark blue/ black venous areas and central chest. HEAD: Atraumatic. Normocephalic. No temporal or scalp tenderness. EYES: Pupils equal round and reactive. Extraocular motions intact. No scleral icterus. No injection or drainage. ENT: Nose without bleeding, purulent drainage or septal hematoma. Throat without erythema, tonsillar hypertrophy or exudate. Uvula midline. Airway patent. NECK: Trachea midline. No JVD or lymphadenopathy. Supple, nontender, no meningeal signs. CARDIOVASCULAR: Regular rate and rhythm without murmurs, gallops, or rubs. RESPIRATORY: Clear to auscultation. Breath sounds equal bilaterally. No wheezes , rales, or rhonchi. GASTROINTESTINAL: Abdomen soft, non-tender, nondistended. No hepato-splenomegaly , or palpable masses. No guarding. MUSCULOSKELETAL: Extremities without clubbing, cyanosis, or edema. Left upper extremity swelling as mentioned above. No pain on palpation of extremity. No restriction of movement of extremity. No change in sensation. NEUROLOGICAL: Awake and alert. Cranial nerves II through XII intact. Motor and sensory grossly within normal limits. Five out of 5 muscle strength in all muscle groups. Normal speech. Laboratory Laboratory Tests Test 11/25/17 14:05 White Blood Count 6.6 Red Blood Count 5.04 Hemoglobin 16.1 Hematocrit 48.5 Mean Corpuscular Volume 96.2 Mean Corpuscular Hemoglobin 32.0 Mean Corpuscular Hemoglobin Concent 33.2 Red Cell Distribution Width 15.4 Platelet Count 184 Mean Platelet Volume 9.4 Neutrophils (%) (Auto) 75.3 Lymphocytes (%) (Auto) 14.5 Monocytes (%) (Auto) 8.0 Eosinophils (%) (Auto) 1.6 Basophils (%) (Auto) 0.6 Neutrophils # (Auto) 5.0 Lymphocytes # (Auto) 1.0 Monocytes # (Auto) 0.5 Eosinophils # (Auto) 0.1 Basophils # (Auto) 0.0 CBC Comment DIFF FINAL Differential Comment Prothrombin Time 11.7 Prothromb Time International Ratio 1.2 Activated Partial Thromboplast Time 27.3 Blood Urea Nitrogen 23 Creatinine 1.13 Random Glucose 104 Total Protein 6.7 Albumin 3.2 Calcium Level 8.7 Alkaline Phosphatase 61 Aspartate Amino Transf (AST/SGOT) 33 Alanine Aminotransferase (ALT/SGPT) 41 Total Bilirubin 0.4 Sodium Level 142 Potassium Level 3.9 Chloride Level 107 Carbon Dioxide Level 28.9 Anion Gap 6 Estimat Glomerular Filtration Rate 64 Result Diagram: 11/25/17 1405 11/25/17 1405 Septic Shock Reassessment Septic shock perfusion: reassessment completed Caprini VTE Risk Assessment Caprini VTE Risk Assessment: No/Low Risk (score <= 1) Caprini Risk Assessment Model Point Value = 1 Point Value = 2 Point Value = 3 Point Value = 5 Age 41-60 Minor surgery BMI > 25 kg/m2 Swollen legs Varicose veins or History of unexplained or recurrent spontaneous Oral contraceptives or hormone replacement Sepsis (< 1 month) Serious lung disease, including pneumonia (< 1 month) Abnormal pulmonary function Acute myocardial infarction Congestive heart failure (< 1 month) History of inflammatory bowel disease Medical patient at bed rest Age 61-74 Arthroscopic surgery Major open surgery (> 45 min) Laparoscopic surgery (> 45 min) Malignancy Confined to bed (> 72 hours) Immobilizing plaster cast Central venous access Age >= 75 History of VTE Family history of VTE Factor V Leiden Prothrombin [id number] Lupus anticoagulant Anticardiolipin antibodies Elevated serum homocysteine Heparin-induced thrombocytopenia Other congenital or acquired thrombophilia Stroke (< 1 month) Elective arthroplasty Hip, pelvis, or leg fracture Acute spinal cord injury (< 1 month) Prophylaxis Regimen Total Risk Factor Score Risk Level Prophylaxis Regimen 0-1 Low Early ambulation 2 Moderate Order ONE of the following: *Sequential Compression Device (SCD) *Heparin 5000 units SQ BID 3-4 Higher Order ONE of the following medications: *Heparin 5000 units SQ TID *Enoxaparin/Lovenox 40 mg SQ daily (WT < 150 kg, CrCl > 30 mL/min) *Enoxaparin/Lovenox 30 mg SQ daily (WT < 150 kg, CrCl > 10-29 mL/min) *Enoxaparin/Lovenox 30 mg SQ BID (WT < 150 kg, CrCl > 30 mL/min) AND/OR *Sequential Compression Device (SCD) 5 or more Highest Order ONE of the following medications: *Heparin 5000 units SQ TID (Preferred with Epidurals) *Enoxaparin/Lovenox 40 mg SQ daily (WT < 150 kg, CrCl > 30 mL/min) *Enoxaparin/Lovenox 30 mg SQ daily (WT < 150 kg, CrCl > 10-29 mL/min) *Enoxaparin/Lovenox 30 mg SQ BID (WT < 150 kg, CrCl > 30 mL/min) AND *Sequential Compression Device (SCD) Assessment and Plan Assessment and Plan 72 y/o M, recently diagnosed with SVC occlusion and placed on anticoagulation, comes in complaining of persistent swelling x 3 weeks progressively getting worse since last weekend. Code Status Full code Problem List: (1) Superior vena cava occlusion with collaterals ICD Codes: I87.1 - Compression of vein Status: Acute Plan: SVC obstruction related to port placement, catheter induced upper extremity DVT IR scheduled to perform procedure on Tuesday; possibly balloon venoplasty initially 3 months of anticoagulation is recommended per up-to-date We will continue anticoagulation with Xarelto twice daily for now Symptomatic Care Elevation Warm or cool compresses NSAIDs for pain s/p IV lasix 40mg IV x 2 for symptomatic relief - Add 20meq KCl - f/u BMP in AM - f/u sx in AM (2) 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
[2017-11-25] MEDS ORDERED: MELATONIN 10 MG PO PRN (18:45)
[2017-11-25] MEDS ORDERED: SODIUM CHLORIDE 0.9% FLUSH 10 ML FLUSH IV FLUSH PRN (19:15)
[2017-11-25] MEDS ORDERED: POTASSIUM CHLORIDE 20 MEQ CONTROLLED RELEASE TAB PO ONE (19:15)
[2017-11-25] MEDS ORDERED: MAGNESIUM HYDROXIDE SUSP 30 ML CUP PO PRN (19:15)
[2017-11-25] MEDS ORDERED: SENNOSIDES 8.6 MG TAB PO PRN (19:15)
[2017-11-25] MEDS ORDERED: LACTULOSE SYRUP 20 GM/30 ML CUP PO PRN (19:15)
[2017-11-25] MEDS ORDERED: ONDANSETRON HCL 4 MG/2 ML VIAL IVP PRN (19:15)
[2017-11-25] MEDS ORDERED: BISACODYL 10 MG SUPP RECTAL PRN (19:15)
[2017-11-25] MEDS ORDERED: NALOXONE HCL 0.4 MG/ML AMP IV PUSH PRN (19:15)
[2017-11-25 19:22] VITALS: BP 153/89; PULSE 71; RESP 18; O2SAT 94
[2017-11-25 20:00] VITALS: BP 148/91; PULSE 76; RESP 18; TEMP 98.1; O2SAT 92
[2017-11-25] MEDS ORDERED: RIVAROXABAN 15 MG TAB PO SCH (21:00)
[2017-11-25] MEDS ORDERED: MELATONIN 5 MG TAB PO PRN (21:00)
[2017-11-25] MEDS ORDERED: NON-FORMULARY DRUG (Trazodone 150 MG) PO SCH (21:00)
[2017-11-25] MEDS: METOPROLOL TARTRATE 25 MG TAB PO SCH (22:53)
[2017-11-25] MEDS: traZODone HCL 50 MG TAB PO SCH (22:54)
[2017-11-25] MEDS: TERAZOSIN HCL 5 MG CAP PO SCH (22:54)
[2017-11-25] MEDS: SODIUM CHLORIDE 0.9% FLUSH 10 ML FLUSH IV FLUSH SCH (22:57)
[2017-11-25] MEDS: ZOLPIDEM TARTRATE 5 MG TAB PO PRN (22:57)
[2017-11-26] VITALS (7 sets, daily range): BP systolic 106–137; BP diastolic 57–70; PULSE 63–75; RESP 16–20; TEMP 97.4–98.4; O2SAT 92–93
[2017-11-26 05:39] LABS: AUTOMATED NEUTROPHIL # 4.5 TH/MM3 (1.8-7.7); BASOPHIL % 0.6 % (0.0-2.0); EOSINOPHIL # 0.2 TH/MM3 (0-0.4); EOSINOPHIL % 2.5 % (0.0-4.0); HEMATOCRIT 46.5 % (39.0-51.0); HEMOGLOBIN 15.6 GM/DL (13.0-17.0); LYMPH % 20.1 % (9.0-44.0); LYMPHOCYTE # 1.3 TH/MM3 (1.0-4.8); MEAN CELL VOLUME 96.4 FL (80.0-100.0); MEAN CORPUSCULAR HEMOGLOBIN 32.4 PG (27.0-34.0); MEAN CORPUSCULAR HGB CONC 33.6 % (32.0-36.0); MEAN PLATELET VOLUME 9.4 FL (7.0-11.0); MONO % 9.9 % (0.0-8.0); MONOCYTE # 0.7 TH/MM3 (0-0.9); NEUT % 66.9 % (16.0-70.0); PLATELET COUNT 166 TH/MM3 (150-450); RED BLOOD COUNT 4.82 MIL/MM3 (4.50-5.90); RED CELL DISTRIBUTION WIDTH 15.4 % (11.6-17.2); WHITE BLOOD COUNT 6.7 TH/MM3 (4.0-11.0)
[2017-11-26 05:55] LABS: CALCIUM 8.5 MG/DL (8.5-10.1); CREATININE 1.19 MG/DL (0.60-1.30)
[2017-11-26] MEDS: UMECLIDINIUM 62.5 MCG/VILANTEROL 25 MCG INHALER INH SCH (08:33)
[2017-11-26] MEDS: PRAVASTATIN SOD 10 MG TAB PO SCH (08:34)
[2017-11-26] MEDS: SODIUM CHLORIDE 0.9% FLUSH 10 ML FLUSH IV FLUSH SCH ×2 (08:34→20:50)
[2017-11-26] MEDS: METOPROLOL TARTRATE 25 MG TAB PO SCH ×2 (08:34→20:49)
[2017-11-26] MEDS: LISINOPRIL 10 MG TAB PO SCH (08:35)
[2017-11-26] MEDS: EZETIMIBE 10 MG TAB PO SCH (08:35)
--- NOTE | 2017-11-26 08:43 | HHI.FPPN ---
Subjective Remarks Patient seen, examined, and discussed with resident team. This note is written in conjunction with resident H&P dated 11/25/17. Shane Pate is a 72yo gentleman with recently diagnosed SVC occlusion from ER visit dated 11/20/2017. He was discharged on Xarelto from the ER. He returned to the hospital for continued swelling of left arm, which is worsening. This morning, he is without complaints. He feels that the edema in his arm is a little improved, after having received diuretics overnight. He denies chest pain , SOB. ROS: As above and per resident H&P dated 11/25/17. PMH/PSxH/SocHx/FamHx: Per resident H&P dated 11/25/17. Significant for alpha-1 antitrypsin deficiency; port placement for treatments. He has had port placement x 2 (#1 with staph infection, #2 is current port). Prior 1ppd tobacco use. Objective Vitals Vital Signs Date Time Temp Pulse Resp B/P (MAP) Pulse Ox O2 Delivery O2 Flow Rate FiO2 11/26/17 04:00 98.4 66 18 118/59 (78) 92 11/26/17 00:00 97.8 72 18 106/57 (73) 92 11/25/17 20:26 11/25/17 20:00 98.1 76 18 148/91 (110) 92 11/25/17 19:30 21 11/25/17 19:22 71 18 153/89 (110) 94 Room Air 11/25/17 18:00 98.2 74 18 179/79 (112) 93 Room Air 11/25/17 14:06 96 Room Air 11/25/17 14:06 96 Room Air 11/25/17 13:57 94 Room Air 11/25/17 13:09 98.0 86 22 195/79 (117) 94 I/O 11/25/17 11/25/17 11/25/17 11/26/17 11/26/17 11/26/17 07:00 15:00 23:00 07:00 15:00 23:00 Output Total 200 ml Balance -200 ml Output Urine Total 200 ml Result Diagram: 11/26/17 0345 11/26/17 0345 Objective Remarks Per resident H&P dated 11/25/17. Left upper extremity edema noted. There is swelling noted supraclavicular regions as well. Port noted on left anterior chest. Venous congestion/blue discoloration noted on chest as well. A/P Assessment and Plan 72 y/o M, recently diagnosed with SVC occlusion and placed on anticoagulation, comes in complaining of persistent swelling x 3 weeks progressively getting worse since last weekend. Attending Attestation The patient has been seen and examined. The chart and all resident notes have been reviewed. I agree that inpatient care is appropriate and that a two midnight stay is expected for the reasons documented in the resident history and physical. I have discussed this with the resident and certify the resident s order for inpatient admission. 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 Will stop xarelto in anticipation of procedure on Tuesday and transition to heparin. Will plan to transition from heparin to Xarelto post-procedure. Will contact patient's ethnology teacher re: port placement; anticipate port may need to be removed due to SVC occlusion. s/p IV lasix 40mg IV x 2 for symptomatic relief; will continue. (2) Bqgje-4-jsypawfjfgr deficiency ICD Codes: E88.01 - Ssgrz-4-sbifvepwjpx deficiency Status: Chronic Plan: Pt reports he can no longer afford treatments ($1000/month) for his diagnosis. Will contact patient's ethnology teacher. (3) Hypertension ICD Codes: I10 - Essential (primary) hypertension Status: Chronic Plan: Continue home meds. Blood pressure is stable. Problem Qualifiers (1) Hypertension: Qualified Codes: I10 - Essential (primary) hypertension Chiquita Orourke MD Nov 26, 2017 08:43
[2017-11-26] MEDS ORDERED: TESTOSTERONE CYPIONATE IN OIL 200 MG/ML VIAL IM SCH (09:00)
[2017-11-26 13:39] LABS: HEMATOCRIT 48.2 % (39.0-51.0); HEMOGLOBIN 16.1 GM/DL (13.0-17.0); MEAN CELL VOLUME 96.4 FL (80.0-100.0); MEAN CORPUSCULAR HEMOGLOBIN 32.2 PG (27.0-34.0); MEAN CORPUSCULAR HGB CONC 33.4 % (32.0-36.0); MEAN PLATELET VOLUME 9.4 FL (7.0-11.0); PLATELET COUNT 180 TH/MM3 (150-450); RED CELL DISTRIBUTION WIDTH 15.3 % (11.6-17.2); WHITE BLOOD COUNT 6.5 TH/MM3 (4.0-11.0)
[2017-11-26 13:49] LABS: INTERNATIONAL NORMALIZED RATIO 1.1 RATIO; PROTHROMBIN TIME - PATIENT 11.4 SEC (9.8-11.6)
[2017-11-26] MEDS: HEPARIN-D5W 25,000 U/250 ML 250 ML IV PRN (15:24)
--- NOTE | 2017-11-26 16:59 | EKG ---
Date Performed: 11/25/2017 Time Performed: 20:08:06 PTAGE: 72 years EKG: Sinus rhythm WITH FIRST DEGREE AV BLOCK MARKED LEFT AXIS DEVIATION LEFT BUNDLE BRANCH BLOCK ABNORMAL ECG Since e PREVIOUS TRACING , no significant change noted PREVIOUS TRACIN05/25/2013 17.30 DOCTOR: Dang Dominique Interpretating Date/Time 11/26/2017 16:57:58
[2017-11-26] MEDS: FUROSEMIDE 20 MG TAB PO SCH (17:15)
[2017-11-26] MEDS: traZODone HCL 50 MG TAB PO SCH (20:49)
[2017-11-26] MEDS: TERAZOSIN HCL 5 MG CAP PO SCH (20:50)
[2017-11-26] MEDS: ZOLPIDEM TARTRATE 5 MG TAB PO PRN (20:55)
[2017-11-27] VITALS (10 sets, daily range): BP systolic 98–121; BP diastolic 55–59; PULSE 56–81; RESP 16–20; TEMP 97.5–98.7; O2SAT 93–98
[2017-11-27 05:06] LABS: BICARBONATE 30.9 MEQ/L (21.0-32.0); CALCIUM 8.9 MG/DL (8.5-10.1); CREATININE 1.16 MG/DL (0.60-1.30)
[2017-11-27] MEDS: HEPARIN-D5W 25,000 U/250 ML 250 ML IV PRN ×2 (05:06→20:02)
[2017-11-27 05:08] LABS: AUTOMATED NEUTROPHIL # 4.1 TH/MM3 (1.8-7.7); BASOPHIL % 0.7 % (0.0-2.0); EOSINOPHIL # 0.2 TH/MM3 (0-0.4); EOSINOPHIL % 3.7 % (0.0-4.0); HEMOGLOBIN 15.4 GM/DL (13.0-17.0); LYMPH % 20.1 % (9.0-44.0); LYMPHOCYTE # 1.2 TH/MM3 (1.0-4.8); MEAN CELL VOLUME 97.4 FL (80.0-100.0); MEAN CORPUSCULAR HEMOGLOBIN 32.7 PG (27.0-34.0); MEAN CORPUSCULAR HGB CONC 33.5 % (32.0-36.0); MEAN PLATELET VOLUME 9.2 FL (7.0-11.0); MONO % 9.2 % (0.0-8.0); MONOCYTE # 0.6 TH/MM3 (0-0.9); NEUT % 66.3 % (16.0-70.0); PLATELET COUNT 155 TH/MM3 (150-450); RED BLOOD COUNT 4.73 MIL/MM3 (4.50-5.90); RED CELL DISTRIBUTION WIDTH 15.5 % (11.6-17.2); WHITE BLOOD COUNT 6.2 TH/MM3 (4.0-11.0)
[2017-11-27] MEDS: UMECLIDINIUM 62.5 MCG/VILANTEROL 25 MCG INHALER INH SCH (07:58)
[2017-11-27] MEDS: FUROSEMIDE 20 MG TAB PO SCH ×2 (07:59→17:45)
[2017-11-27] MEDS: METOPROLOL TARTRATE 25 MG TAB PO SCH ×2 (07:59→20:09)
[2017-11-27] MEDS: SODIUM CHLORIDE 0.9% FLUSH 10 ML FLUSH IV FLUSH SCH ×2 (07:59→20:10)
[2017-11-27] MEDS: LISINOPRIL 10 MG TAB PO SCH (08:01)
[2017-11-27] MEDS: PRAVASTATIN SOD 10 MG TAB PO SCH (08:01)
[2017-11-27] MEDS: EZETIMIBE 10 MG TAB PO SCH (08:02)
--- NOTE | 2017-11-27 09:27 | HHI.FPPN ---
Subjective Remarks Patient seen and examined bedside this morning. Patient states that his swelling in his left upper extremity seems to be increased from yesterday. And he is also experiencing some weeping around his forearm and wrist. Continues to deny any pain in his arm or elsewhere. No acute events overnight. No chest pain/shortness of breath/dizziness. (Annelise Jaime MD R2) Objective Vitals Vital Signs Date Time Temp Pulse Resp B/P (MAP) Pulse Ox O2 Delivery O2 Flow Rate FiO2 11/27/17 08:00 97.8 58 16 121/58 (79) 94 11/27/17 04:00 97.5 58 20 116/58 (77) 94 11/27/17 03:46 57 11/27/17 00:02 56 11/27/17 00:00 98.3 66 20 115/59 (77) 94 11/26/17 20:09 71 11/26/17 20:00 97.6 75 20 118/59 (78) 92 11/26/17 16:00 97.8 73 18 137/65 (89) 93 11/26/17 12:00 97.4 63 18 117/57 (77) 93 I/O 11/26/17 11/26/17 11/26/17 11/27/17 11/27/17 11/27/17 06:59 14:59 22:59 06:59 14:59 22:59 Intake Total 1200 ml 490 ml Output Total 200 ml Balance -200 ml 1200 ml 490 ml Intake Oral 1200 ml 240 ml IV Total 250 ml Output Urine Total 200 ml # Voids 4 2 # Bowel Movements 1 0 (Annelise Jaime MD R2) Result Diagram: 11/27/17 0340 11/27/17 0340 Objective Remarks GENERAL: In no acute distress, awake alert and oriented 3, sitting up in chair and talkative SKIN: Warm and dry. HEAD: Normocephalic. EYES: No scleral icterus. No injection or drainage. NECK: Supple, trachea midline. No JVD or lymphadenopathy. Port is placed. Areas of venous congestion/blue discoloration over chest. The same as prior exams. Swelling in supra clavicular regions appears to be decreased from previous. CARDIOVASCULAR: Regular rate and rhythm without murmurs, gallops, or rubs. RESPIRATORY: Breath sounds equal bilaterally. No accessory muscle use. GASTROINTESTINAL: Abdomen soft, non-tender, nondistended. MUSCULOSKELETAL: Swelling and left upper extremity from hand to shoulder 3+ pitting edema and increased from yesterday's exam. No tenderness or erythema. Sensation and motor intact BACK: Nontender without obvious deformity. No CVA tenderness. (Annelise Jaime MD R2) A/P Assessment and Plan 72 y/o M, history of alpha-1 antitrypsin deficiency with infusions through port placement, recently diagnosed with catheter induced SVC occlusion and placed on anticoagulation, comes in complaining of persistent swelling x 3 weeks progressively getting worse since last weekend. aware of SVC occlusion and agreed to perform procedure on 11/28; possible balloon venoplasty versus stenting. Discharge Planning Pending completion of IR procedure and I recommendations (Annelise Jaime MD R2) Attending Attestation Patient seen and examined, discussed with resident team. I agree with assessment and management as documented and discussed with me. Pt without significant complaints. Swelling in his arm about the same. He is looking forward to the procedure tomorrow. 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 Will stop xarelto in anticipation of procedure on Tuesday and transition to heparin. Will plan to transition from heparin to Xarelto post-procedure. Will contact patient's production hardener on 11/28 re: port placement; anticipate port may need to be removed due to SVC occlusion. Continue weight-based coagulation with heparin s/p IV lasix 40mg IV x 2 for symptomatic relief; was successful Lasix 20mg p.o. twice daily was not successful Start Lasix 40mg IV BID (likely for today only, until procedure tomorrow) (2) Gehxa-7-twojsutrzfs deficiency ICD Codes: E88.01 - Rwvca-5-xxywtyjpfno deficiency Status: Chronic Plan: Pt reports he can no longer afford treatments ($1000/month) for his diagnosis. Will contact patient's production hardener tomorrow, 11/28. (3) Hypertension ICD Codes: I10 - Essential (primary) hypertension Status: Chronic Plan: Continue home meds. Blood pressure is stable. (4) fen/ppx Status: Acute Plan: Fluids: P.o. fluids Electrolytes: For normal limits, follow-up BMP and replete as needed Nutrition: P.o. diet, n.p.o. at midnight, NPO at midnight GI prophylaxis: Not indicated DVT prophylaxis: Therapeutic heparin dosing (Annelise Jaime MD R2) Problem Qualifiers (1) Hypertension: Qualified Codes: I10 - Essential (primary) hypertension Annelise Jaime MD R2 Nov 27, 2017 09:27 Chiquita Orourke MD Nov 29, 2017 06:37
[2017-11-27] MEDS: FUROSEMIDE 40 MG/4 ML VIAL IV PUSH SCH ×2 (10:29→17:45)
[2017-11-27] MEDS: TERAZOSIN HCL 5 MG CAP PO SCH (20:04)
[2017-11-27] MEDS: ZOLPIDEM TARTRATE 5 MG TAB PO PRN (20:04)
[2017-11-27] MEDS: traZODone HCL 50 MG TAB PO SCH (20:08)
[2017-11-28] VITALS (9 sets, daily range): BP systolic 120–149; BP diastolic 59–81; PULSE 64–101; RESP 16–18; TEMP 97.4–97.9; O2SAT 70–98
[2017-11-28 06:13] LABS: AUTOMATED NEUTROPHIL # 4.2 TH/MM3 (1.8-7.7); BASOPHIL % 0.7 % (0.0-2.0); EOSINOPHIL # 0.2 TH/MM3 (0-0.4); EOSINOPHIL % 2.9 % (0.0-4.0); HEMATOCRIT 48.1 % (39.0-51.0); HEMOGLOBIN 16.2 GM/DL (13.0-17.0); LYMPH % 20.5 % (9.0-44.0); LYMPHOCYTE # 1.3 TH/MM3 (1.0-4.8); MEAN CORPUSCULAR HEMOGLOBIN 32.2 PG (27.0-34.0); MEAN CORPUSCULAR HGB CONC 33.6 % (32.0-36.0); MEAN PLATELET VOLUME 8.5 FL (7.0-11.0); MONO % 9.5 % (0.0-8.0); MONOCYTE # 0.6 TH/MM3 (0-0.9); NEUT % 66.4 % (16.0-70.0); PLATELET COUNT 157 TH/MM3 (150-450); RED BLOOD COUNT 5.01 MIL/MM3 (4.50-5.90); RED CELL DISTRIBUTION WIDTH 15.1 % (11.6-17.2); WHITE BLOOD COUNT 6.4 TH/MM3 (4.0-11.0)
[2017-11-28 06:27] LABS: INTERNATIONAL NORMALIZED RATIO 1.1 RATIO; PROTHROMBIN TIME - PATIENT 10.8 SEC (9.8-11.6)
[2017-11-28 06:34] LABS: BICARBONATE 32.3 MEQ/L (21.0-32.0); CALCIUM 8.9 MG/DL (8.5-10.1); CREATININE 1.16 MG/DL (0.60-1.30)
[2017-11-28] MEDS: METOPROLOL TARTRATE 25 MG TAB PO SCH ×2 (08:59→20:57)
[2017-11-28] MEDS: FUROSEMIDE 40 MG/4 ML VIAL IV PUSH SCH (09:00)
[2017-11-28] MEDS: LISINOPRIL 10 MG TAB PO SCH (09:00)
[2017-11-28] MEDS: FUROSEMIDE 20 MG TAB PO SCH (09:00)
[2017-11-28] MEDS: PRAVASTATIN SOD 10 MG TAB PO SCH (09:00)
[2017-11-28] MEDS: EZETIMIBE 10 MG TAB PO SCH (09:00)
[2017-11-28] MEDS: UMECLIDINIUM 62.5 MCG/VILANTEROL 25 MCG INHALER INH SCH (09:01)
[2017-11-28] MEDS: SODIUM CHLORIDE 0.9% FLUSH 10 ML FLUSH IV FLUSH SCH ×2 (09:04→21:00)
[2017-11-28] MEDS ORDERED: fentaNYL CITRATE 250 MCG/5 ML AMP ONE (11:59)
[2017-11-28] MEDS ORDERED: MIDAZOLAM HCL 2 MG/2 ML VIAL ONE (12:00)
[2017-11-28] MEDS ORDERED: ceFAZolin 2 GM PREMIX 50 ML ONE (12:53)
[2017-11-28] MEDS ORDERED: IOHEXOL 350 MG/ML 50 ML BTL (for RAD DIAG) OTHER ONE (13:00)
[2017-11-28] MEDS ORDERED: HEPARIN-D5W 25,000 U/250 ML 250 ML ONE (13:49)
--- NOTE | 2017-11-28 14:02 | PD.RAD ---
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
--- NOTE | 2017-11-28 15:03 | RADRPT ---
EXAM DATE/TIME: 11/28/2017 00:00 [facility] COMPARISON: No previous studies available for comparison. INDICATIONS : 72-year-old male with history of Tjxljz-b-Ikhk placement and recently diagnosed symptomatic SVC obstr uction. Plan is for SVC plasty and removal of the existing port. MEDICAL HISTORY : COPD, HTN, Diabetes, Alpha 1 antitrypsin deficiency, HLD, GERD SURGICAL HISTORY : Port placement ENCOUNTER: Initial ACUITY: 3 weeks PAIN SCORE: 0/10 SEDATION TIME: 60 minutes 1.) 4 mg midazolam (Versed) IV 2.) 250 mcg fentanyl (Sublimaze) IV Prophylactic antibiotics were administered with appropriate pre-procedure timing. Vancomycin within 2 hrs of procedure, Ancef (or alternative) within 1 hr of procedure. PROCEDURE : 1. Removal of Qzeuui-f-aaug. 2. Conscious sedation with continuous EKG and oximetry monitoring. The risk, benefits and potential complications of Sqnyiw-k-Blme removal were discussed. Written conse nt was obtained. The patient was placed supine. The chest wall was prepped in sterile fashion. Full sterile techniqu e was used, including cap, mask, sterile gloves and gown, and a large sterile sheet. Hand hygiene an d 2% chlorhexidine and/or Betadine/alcohol prep was utilized per protocol for cutaneous antisepsis. The skin and subcutaneous tissues were infiltrated with local anesthetic solution. A small incision w as made, the subcutaneous pocket was opened. The port was dissected from the subcutaneous tissues and easily removed in one piece. The pocket incision was closed with subcuticular Vicryl suture. Steri -Strips were applied. Conscious sedation was performed with the prescribed dosages and duration as above in the presence of an independent trained radiology nurse to assist in the monitoring of the patient. EKG and oximetry remained stable throughout the procedure. The patient tolerated the procedure well and there were no complications. The patient was sent to post anesthesia recovery in stable condition. CONCLUSION: Uncomplicated port removal as above. Dillon Trimble MD on November 28, 2017 at 15:00 Board Certified Radiologist. This report was verified electronically.
[2017-11-28] MEDS ORDERED: RIVA1TAB PO (15:04)
--- NOTE | 2017-11-28 15:09 | RADRPT ---
EXAM DATE/TIME: 11/28/2017 11:54 [facility] COMPARISON: No previous studies available for comparison. INDICATIONS : 72-year-old male with history of symptomatic SVC occlusion. MEDICAL HISTORY : COPD, HTN, Diabetes, Alpha 1 antitrypsin deficiency, HLD, GERD SURGICAL HISTORY : Port placement ENCOUNTER: Initial ACUITY: 3 weeks PAIN SCORE: 0/10 FLUORO TIME: 5.9 minutes IMAGE SERIES: 7 ACCESS SITE: Right Internal jugular vein SEDATION TIME: 60 minutes CONTRAST: 1.) 50 cc Omnipaque (iohexol) 350 MEDICATION(S): 1.) 4 mg midazolam (Versed) IV 2.) 250 mcg fentanyl (Sublimaze) IV DEVICE(S): 1.) Superior vena cava Abie [id number] 75CM COST CLERK balloon 2.) Superior vena cava XXL Esophageal [id number] 75CM COST CLERK balloon PROCEDURE : 1. Ultrasound-guided puncture of the right internal jugular vein. 2. Conscious sedation with continuous EKG and Oximetry monitoring. 3. SVC cavogram 4. SVC Angioplasty The risks, benefits and alternatives to the procedure were explained and verbal and written consent w as obtained. The site was prepped in sterile fashion. Full sterile technique was used, including ca p, mask, sterile gloves and gown and a large sterile sheet. Hand hygiene and 2% chlorhexidine and/or betadine/alcohol prep was utilized per protocol for cutaneous antisepsis. Sterile gel and sterile p robe cover were utilized for ultrasound guidance. The skin and subcutaneous tissues were infiltrated with local anesthetic solution. With ultrasound and fluoroscopic guidance the right jugular vein was punctured and a vascular sheath was placed. Angiography was performed confirming occlusion of the central SVC corresponding to the le kev of the Urokgf-c-Zydd catheter. The occlusion was subsequently traversed with the assistance of a Glidewire and 4 [place] catheter. Intraluminal position was confirmed abnormal contrast. SVC was subsequently dilated with 12 mm balloon the inflated to normal pressure with reduction of the balloo n waist for 2 minutes x2 dilatations. The left subclavian Aqpjej-o-Qrpa was subsequently removed. Fol lowup renography demonstrated reocclusion of the SVC. Therefore, repeat balloon dilatation was perfor med with 16 mm balloon again inflated for 2 minutes x2 dilatations. No amount of chronic appearing th rombus was also aspirated through the sheath. Followup venography demonstrated patency of the SVC wit h bulky adherent thrombus centrally. Wires and catheters were then removed. The puncture site was closed with manual pressure and hemostasis was obtained. The patient tolerated the procedure well and there were no complications. Conscious sedation was performed with the prescribed dosages and duration as above in the presence of an independent trained radiology nurse to assist in the monitoring of the patient. EKG and oximetry remained stable throughout the procedure. CONCLUSION: 1. Occlusion of the central SVC. 2. Uncomplicated balloon venoplasty of the central SVC with 12 mm in 16mm balloons, as above. Plan: Initiate anticoagulation. Patient will require anti-coagulation for at least 6 months. Dillon Trimble MD on November 28, 2017 at 15:01 Board Certified Radiologist. This report was verified electronically.
--- NOTE | 2017-11-28 15:17 | HHI.DCPOC ---
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 Goals to Promote Your Health * To prevent worsening of your condition and complications * To maintain your health at the optimal level Directions to Meet Your Goals Take your medications as prescribed Follow your dietary instruction Follow activity as directed Keep your appointments as scheduled Take your immunizations and boosters as scheduled If your symptoms worsen call your PCP, if no PCP go to Urgent Care Center or Emergency Room Smoking is Dangerous to Your Health. Avoid second hand smoke Call the 24-hour hour crisis hotline for domestic abuse at Bibi Pfeiffer MD R1 Nov 28, 2017 15:17
[2017-11-28] MEDS: RIVAROXABAN 15 MG TAB PO SCH (16:25)
[2017-11-28] MEDS ORDERED: IBUPROFEN 800 MG TAB PO ONE (16:45)
--- NOTE | 2017-11-28 17:01 | HHI.FPPN ---
Subjective Remarks Patient was seen and evaluated this morning. He feels better and states that his upper extremity edema has significantly decreased. He denies chest pain, shortness of breath, nausea, vomiting, diarrhea and constipation. All questions were answered. (Bibi Pfeiffer MD R1) Objective Vitals Vital Signs Date Time Temp Pulse Resp B/P (MAP) Pulse Ox O2 Delivery O2 Flow Rate FiO2 11/28/17 16:00 97.9 90 16 132/61 (84) 95 11/28/17 15:25 72 16 145/72 (96) 70 11/28/17 14:55 75 16 142/76 (98) 70 11/28/17 14:40 76 16 145/81 (102) 70 11/28/17 14:25 78 16 149/79 (102) 70 11/28/17 14:10 97.4 78 16 145/77 (99) 93 11/28/17 08:00 97.5 64 17 140/71 (94) 93 11/28/17 00:00 97.6 68 18 120/59 (79) 98 11/27/17 23:49 66 11/27/17 20:00 98.6 78 18 98/55 (69) 98 11/27/17 19:50 81 I/O 11/27/17 11/27/17 11/27/17 11/28/17 11/28/17 11/28/17 07:00 15:00 23:00 07:00 15:00 23:00 Intake Total 490 ml 1450 ml 205 ml Balance 490 ml 1450 ml 205 ml Intake Oral 240 ml 1200 ml 50 ml IV Total 250 ml 250 ml 155 ml # Voids 2 7 1 # Bowel Movements 0 2 (Bibi Pfeiffer MD R1) Result Diagram: 11/28/17 0555 11/28/17 0555 Objective Remarks GENERAL: Patient is sitting on the side of the bed comfortably. He is in no apparent distress. SKIN: Warm and dry. HEAD: Atraumatic. Normocephalic. EYES: Pupils equal and round. No scleral icterus. No injection or drainage. ENT: No nasal bleeding or discharge. Mucous membranes pink and moist. NECK: Trachea midline. No JVD. Port remains in place. Areas of venous congestion /blue discoloration over chest. Swelling in supra clavicular regions appears to be decreased. CARDIOVASCULAR: Regular rate and rhythm. RESPIRATORY: No accessory muscle use. Clear to auscultation. Breath sounds equal bilaterally. GASTROINTESTINAL: Positive bowel sounds. Abdomen soft, non-tender, nondistended. MUSCULOSKELETAL: Swelling of left upper extremity from hand to shoulder - improved. No tenderness or erythema. Sensation and motor intact. NEUROLOGICAL: Awake and alert. No obvious cranial nerve deficits. Motor grossly within normal limits. Five out of 5 muscle strength in the arms and legs. Normal speech. PSYCHIATRIC: Appropriate mood and affect; insight and judgment normal. Medications and IVs Current Medications Medications (Trade) Dose Ordered Sig/Lima Route Start Time Stop Time Status Last Admin (Zetia) 10 mg DAILY PO 11/26/17 09:00 11/28/17 09:00 (Prinivil) 10 mg DAILY PO 11/26/17 09:00 11/28/17 09:00 (Lopressor) 75 mg BID PO 11/25/17 21:00 11/28/17 08:59 (Pravachol) 10 mg DAILY PO 11/26/17 09:00 11/28/17 09:00 (Hytrin) 5 mg HS PO 11/25/17 21:00 11/27/17 20:04 (Depotestosterone Inj) 200 mg Q30D IM 11/26/17 09:00 11/26/17 08:33 (NS Flush) 2 ml UNSCH PRN IV FLUSH 11/25/17 19:15 (NS Flush) 2 ml BID IV FLUSH 11/25/17 21:00 11/28/17 09:04 (Zofran Inj) 4 mg Q6H PRN IVP 11/25/17 19:15 (Ambien) 5 mg HS PRN PO 11/25/17 19:15 11/27/17 20:04 (Narcan Inj) 0.4 mg UNSCH PRN IV PUSH 11/25/17 19:15 (Milk Of Magnesia Liq) 30 ml Q12H PRN PO 11/25/17 19:15 (Senokot) 17.2 mg Q12H PRN PO 11/25/17 19:15 (Dulcolax Supp) 10 mg DAILY PRN RECTAL 11/25/17 19:15 (Lactulose Liq) 30 ml DAILY PRN PO 11/25/17 19:15 (Melatonin) 10 mg HS PRN PO 11/25/17 21:00 (Desyrel) 150 mg HS PO 11/25/17 21:00 11/27/17 20:08 (Xarelto) 15 mg Q12H PO 11/28/17 16:00 11/28/17 16:25 (Bibi Pfeiffer MD R1) Urinary Catheter: No (Bibi Pfeiffer MD R1) Vascular Central Line Catheter: No (Bibi Pfeiffer MD R1) A/P Assessment and Plan Patient is a 72 year old male with a past medical history significant of alpha- 1 antitrypsin deficiency with infusions through port placement who was recently diagnosed with catheter induced SVC occlusion and placed on anticoagulation, now comes in complaining of persistent swelling x 3 weeks; swelling progressively getting worse since last weekend. aware of SVC occlusion and agreed to perform procedure on 11/28; possible balloon venoplasty versus stenting. Discharge Planning Possibly today pending IR procedure. (Bibi Pfeiffer MD R1) Attending Attestation Patient seen and examined, discussed with resident team. I agree with assessment and management as documented and discussed with me. Pt without complaints. at bedside. He reports that arm swelling is a bit better. To procedure today in IR. 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 Consult placed for , IR scheduled to perform procedure on Tuesday; possibly balloon venoplasty. Patient previously treated with Xarelto, from recent ER visit. Will stop Xarelto in anticipation of procedure on Tuesday and transition to Heparin. Will plan to transition from Heparin to Xarelto post-procedure. Lasix 40mg IV BID until procedure. (2) Evrsw-0-etcfzgjajqv deficiency ICD Codes: E88.01 - Hpgav-0-zeppmfsuovj deficiency Status: Chronic Plan: Pt reports he can no longer afford treatments ($1000/month) for his diagnosis. He does not want a new port placed, following removal of existing port. * Will follow-up with pulmonology as outpatient. (3) Hypertension ICD Codes: I10 - Essential (primary) hypertension Status: Chronic Plan: Patient with history of hypertension. * Continue home meds. (4) fen/ppx Status: Acute Plan: Fluids: * PO fluid until midnight. * PO following procedure. Electrolytes: * Monitor and replete as necessary. Nutrition: * NPO at midnight. DVT prophylaxis: * Therapeutic Heparin/Xarelto - see above. (Bibi Pfeiffer MD R1) Problem Qualifiers (1) Hypertension: Qualified Codes: I10 - Essential (primary) hypertension Bibi Pfeiffer MD R1 Nov 28, 2017 17:01 Chiquita Orourke MD Nov 29, 2017 06:48
[2017-11-28] MEDS ORDERED: HEPARIN-D5W 25,000 U/250 ML 250 ML IV PRN (17:30)
[2017-11-28] MEDS: traZODone HCL 50 MG TAB PO SCH (20:57)
[2017-11-28] MEDS: ZOLPIDEM TARTRATE 5 MG TAB PO PRN (20:57)
[2017-11-28] MEDS: TERAZOSIN HCL 5 MG CAP PO SCH (20:57)
[2017-11-29] VITALS: BP 119/94; PULSE 87; RESP 17; TEMP 97.4; O2SAT 92
[2017-11-29] MEDS: RIVAROXABAN 15 MG TAB PO SCH (03:56)
[2017-11-29 04:00] VITALS: BP 130/69; PULSE 66; RESP 17; TEMP 98; O2SAT 91
[2017-11-29 05:03] LABS: HEMATOCRIT 46.7 % (39.0-51.0); HEMOGLOBIN 15.8 GM/DL (13.0-17.0); MEAN CELL VOLUME 95.9 FL (80.0-100.0); MEAN CORPUSCULAR HEMOGLOBIN 32.5 PG (27.0-34.0); MEAN CORPUSCULAR HGB CONC 33.9 % (32.0-36.0); MEAN PLATELET VOLUME 9.3 FL (7.0-11.0); PLATELET COUNT 148 TH/MM3 (150-450); RED BLOOD COUNT 4.87 MIL/MM3 (4.50-5.90); RED CELL DISTRIBUTION WIDTH 14.8 % (11.6-17.2); WHITE BLOOD COUNT 6.9 TH/MM3 (4.0-11.0)
[2017-11-29 05:18] LABS: ALBUMIN 2.9 GM/DL (3.4-5.0); ALT (GPT) 33 U/L (12-78); AST (GOT) 21 U/L (15-37); BICARBONATE 32.1 MEQ/L (21.0-32.0); BLOOD UREA NITROGEN 19 MG/DL (7-18); CHLORIDE 102 MEQ/L (98-107); CREATININE 1.19 MG/DL (0.60-1.30); GLOMERULAR FILTRATION RATE 60 ML/MIN (>89); GLUCOSE,RANDOM 97 MG/DL (74-106); SODIUM (NA) 141 MEQ/L (136-145)
[2017-11-29 05:21] LABS: ALKALINE PHOSPHATASE 63 U/L (45-117); TOTAL BILIRUBIN ADULT 0.4 MG/DL (0.2-1.0); TOTAL PROTEIN 6.2 GM/DL (6.4-8.2)
[2017-11-29 08:00] VITALS: BP 141/70; PULSE 75; RESP 19; TEMP 97.8; O2SAT 92
--- NOTE | 2017-11-29 08:53 | HHI.FPPN ---
Subjective Remarks Patient was seen and evaluated this morning. He reports feeling significantly better since the procedure yesterday. He experienced some swelling over old port side but says that ibuprofen and ice alleviated the swelling and discomfort. He denies chest pain, shortness of breath, nausea, vomiting, diarrhea and constipation. All questions were answered. (Bibi Pfeiffer MD R1) Objective Vitals Vital Signs Date Time Temp Pulse Resp B/P (MAP) Pulse Ox O2 Delivery O2 Flow Rate FiO2 11/29/17 04:00 98.0 66 17 130/69 (89) 91 11/29/17 00:00 97.4 87 17 119/94 (102) 92 11/28/17 20:00 97.9 101 17 121/73 (89) 90 11/28/17 16:00 97.9 90 16 132/61 (84) 95 11/28/17 15:25 72 16 145/72 (96) 70 11/28/17 14:55 75 16 142/76 (98) 70 11/28/17 14:40 76 16 145/81 (102) 70 11/28/17 14:25 78 16 149/79 (102) 70 11/28/17 14:10 97.4 78 16 145/77 (99) 93 I/O 11/28/17 11/28/17 11/28/17 11/29/17 11/29/17 11/29/17 06:59 14:59 22:59 06:59 14:59 22:59 Intake Total 205 ml 0 ml 480 ml Balance 205 ml 0 ml 480 ml Intake Oral 50 ml 0 ml 480 ml IV Total 155 ml # Voids 1 2 4 # Bowel Movements 0 (Bibi Pfeiffer MD R1) Result Diagram: 11/29/17 0356 11/29/17 0356 Imaging Last 72 hours Impressions Vena Cavagram 11/28/17 0000 Signed Impressions: Service Date/Time: Tuesday, November 28, 2017 11:54 - CONCLUSION: 1. Occlusion of the central SVC. 2. Uncomplicated balloon venoplasty of the central SVC with 12 mm in 16mm balloons, as above. Plan: Initiate anticoagulation. Patient will require anti-coagulation for at least 6 months. Dillon Trimble MD Port Line Revision 11/28/17 0000 Signed Impressions: Service Date/Time: Tuesday, November 28, 2017 00:00 - CONCLUSION: Uncomplicated port removal as above. Dillon Trimble MD Objective Remarks GENERAL: Patient is sitting on the side of the bed comfortably. He is in no apparent distress. SKIN: Warm and dry. HEAD: Atraumatic. Normocephalic. EYES: Pupils equal and round. No scleral icterus. No injection or drainage. ENT: No nasal bleeding or discharge. Mucous membranes pink and moist. NECK: Trachea midline. No JVD. Bandage over neck/right supraclavicular area; dry and clean. Bandage over left infraclavicular area; dry and clean. CARDIOVASCULAR: Regular rate and rhythm. RESPIRATORY: No accessory muscle use. Clear to auscultation. Breath sounds equal bilaterally. GASTROINTESTINAL: Positive bowel sounds. Abdomen soft, non-tender, nondistended. MUSCULOSKELETAL: Swelling of left upper extremity from hand to shoulder - improved. No tenderness or erythema. Sensation and motor intact. NEUROLOGICAL: Awake and alert. No obvious cranial nerve deficits. Motor grossly within normal limits. Five out of 5 muscle strength in the arms and legs. Normal speech. PSYCHIATRIC: Appropriate mood and affect; insight and judgment normal. Medications and IVs Current Medications Medications (Trade) Dose Ordered Sig/Lima Route Start Time Stop Time Status Last Admin (Zetia) 10 mg DAILY PO 11/26/17 09:00 11/28/17 09:00 (Prinivil) 10 mg DAILY PO 11/26/17 09:00 11/28/17 09:00 (Lopressor) 75 mg BID PO 11/25/17 21:00 11/28/17 20:57 (Pravachol) 10 mg DAILY PO 11/26/17 09:00 11/28/17 09:00 (Hytrin) 5 mg HS PO 11/25/17 21:00 11/28/17 20:57 (Depotestosterone Inj) 200 mg Q30D IM 11/26/17 09:00 11/26/17 08:33 (NS Flush) 2 ml UNSCH PRN IV FLUSH 11/25/17 19:15 (NS Flush) 2 ml BID IV FLUSH 11/25/17 21:00 11/28/17 21:00 (Zofran Inj) 4 mg Q6H PRN IVP 4/13/18 19:15 (Ambien) 5 mg HS PRN PO 11/25/17 19:15 11/28/17 20:57 (Narcan Inj) 0.4 mg UNSCH PRN IV PUSH 11/25/17 19:15 (Milk Of Magnesia Liq) 30 ml Q12H PRN PO 11/25/17 19:15 (Senokot) 17.2 mg Q12H PRN PO 11/25/17 19:15 (Dulcolax Supp) 10 mg DAILY PRN RECTAL 11/25/17 19:15 (Lactulose Liq) 30 ml DAILY PRN PO 11/25/17 19:15 (Melatonin) 10 mg HS PRN PO 11/25/17 21:00 (Desyrel) 150 mg HS PO 11/25/17 21:00 11/28/17 20:57 (Xarelto) 15 mg Q12H PO 11/28/17 16:00 11/29/17 03:56 (Bibi Pfeiffer MD R1) Urinary Catheter: No (Bibi Pfeiffer MD R1) Vascular Central Line Catheter: No (Bibi Pfeiffer MD R1) A/P Assessment and Plan Patient is a 72 year old male with a past medical history significant of alpha- 1 antitrypsin deficiency with infusions through port placement who was recently diagnosed with catheter induced SVC occlusion and placed on anticoagulation, now comes in complaining of persistent swelling x 3 weeks; swelling progressively getting worse since last weekend. aware of SVC occlusion and agreed to perform procedure on 11/28. Discharge Planning Today. (Bibi Pfeiffer MD R1) Attending Attestation Patient seen and examined, discussed with resident team. I agree with assessment and management as documented and discussed with me. PT without complaints this morning. He did well after his procedure and feels ready for discharge. Discussed risks, benefits, side effects of Xarelto. Discussed he will need treatment at least 3 months, and that his primary care doctor can determine if prolonged treatment is indicated. 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 Consult placed for , IR scheduled performed procedure on 11/28. Patient previously treated with Xarelto, from recent ER visit. Xarelto to be restarted immediately following procedure. Patient to continue Xarelto Starter Pack at home. 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 He does not want a new port placed, following removal of existing port. * Will follow-up with pulmonology as outpatient. (3) Hypertension ICD Codes: I10 - Essential (primary) hypertension Status: Chronic Plan: Patient with history of hypertension. * Continue home meds. (4) fen/ppx Status: Acute Plan: Fluids: * Tolerates PO. Electrolytes: * Monitor and replete as necessary. Nutrition: * Regular diet. DVT prophylaxis: * Therapeutic Xarelto - see above. (Bibi Pfeiffer MD R1) Problem Qualifiers (1) Hypertension: Qualified Codes: I10 - Essential (primary) hypertension Bibi Pfeiffer MD R1 Nov 29, 2017 08:53 Chiquita Orourke MD Nov 29, 2017 21:52
[2017-11-29] MEDS: EZETIMIBE 10 MG TAB PO SCH (10:01)
[2017-11-29] MEDS: PRAVASTATIN SOD 10 MG TAB PO SCH (10:01)
[2017-11-29] MEDS: LISINOPRIL 10 MG TAB PO SCH (10:01)
[2017-11-29] MEDS: METOPROLOL TARTRATE 25 MG TAB PO SCH (10:01)
[2017-11-29] MEDS: UMECLIDINIUM 62.5 MCG/VILANTEROL 25 MCG INHALER INH SCH (10:02)
[2017-11-29] MEDS: SODIUM CHLORIDE 0.9% FLUSH 10 ML FLUSH IV FLUSH SCH (10:02)
== END 2017-11-29 12:11 | disposition home or self-care (01) | DRG 271 ==
LOC: NEPC 13:05 → NEDA 15:21 → N07B 20:22
PROVIDERS: ADMIT Family Medicine; ATTEND Family Medicine
PROC: 0JPT0WZ Removal of Totally Implantable Vascular Access Device from Trunk Subcutaneous Tissue and Fascia, Open Approach (ICD-10-PCS; principal; 2017-11-28)
PROC: 02CV3ZZ Extirpation of Matter from Superior Vena Cava, Percutaneous Approach (ICD-10-PCS; 2017-11-28)
PROC: 027V3ZZ Dilation of Superior Vena Cava, Percutaneous Approach (ICD-10-PCS; 2017-11-28)
PROC: B5181ZZ Fluoroscopy of Superior Vena Cava using Low Osmolar Contrast (ICD-10-PCS; 2017-11-28)
DX: T82.868A Thrombosis due to vascular prosthetic devices, implants and grafts, initial encounter (principal); I82.210 Acute embolism and thrombosis of superior vena cava; E88.01 Alpha-1-antitrypsin deficiency; J44.9 Chronic obstructive pulmonary disease, unspecified; I10 Essential (primary) hypertension; K21.9 Gastro-esophageal reflux disease without esophagitis; E78.5 Hyperlipidemia, unspecified; E11.9 Type 2 diabetes mellitus without complications; I34.0 Nonrheumatic mitral (valve) insufficiency; E66.3 Overweight; Z68.28 Body mass index [BMI] 28.0-28.9, adult; Z87.891 Personal history of nicotine dependence; Z91.120 Patient's intentional underdosing of medication regimen due to financial hardship; Z96.659 Presence of unspecified artificial knee joint; Z85.828 Personal history of other malignant neoplasm of skin
CPT/HCPCS: 36010; 36590; 37248; 71045; 75827; 76937; 80048; 80053; 82272; 85025; 85027; 85610; 85730; 93005; 94150; 99152; 99153; 99285; C1725; C1769; C1887; C1894; J0690; J1071; J1644; J1940; J2250; J3010; Q9967